=== PATIENT | female | born 1970 | race Caucasian/White ===

== ENCOUNTER 2020-10-26 04:49 | Emergency (ER) | payer BC, OTHER ==
[~2020-10-26] VITALS: Ht 149.9 cm; Wt 99.5 kg
--- NOTE | 2020-10-26 05:11 | PHYS DOC ---
Past Medical History Additional Past Medical Histor: Scoliosis Past Surgical History: No Surgical History Smoking Status: Current Every Day Smoker Alcohol Use: None Drug Use: None General Adult EDM: Chief Complaint: LOWER EXT PAIN HPI: HPI: 50-year-old female presents via EMS with report of bilateral leg pain. Reports cramping pain awoke her at approximately 0430 this morning. Reports at that time it was 10 out of 10. Reports upon arrival to the emergency department now down to 4 out of 10. Denies trauma. Patient reports she was unable to ambulate initially due to the cramping pain. Patient does report taking some ibuprofen prior to arrival. 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 Patient does report she is up on her feet all day. Patient does report earlier this week she had some nausea and vomiting and reports she is just now starting to feel better. Patient reports she has been trying to stay hydrated by drinking extra water. Denies any fever or chills. Denies loss of bowel or bladder. Patient does report chronic back issues with scoliosis but denies history of sciatica. Review of Systems: Review of Systems: Constitutional: Denies fever or chills Eyes: Denies redness or eye pain HENT: Denies nasal congestion or sore throat Respiratory: Denies cough or shortness of breath Cardiovascular: Denies chest pain or palpitations GI: Denies abdominal pain; reports history of nausea and vomiting which is now resolved : Denies dysuria or hematuria Musculoskeletal: Denies back pain; reports of bilateral leg pain Integument: Denies rash or skin lesions Neurologic: Denies headache, focal weakness or sensory changes Complete systems were reviewed and found to be within normal limits, except as documented in this note. Allergies: Allergies: Allergies Coded Allergies Type Severity Reaction Last Updated Verified No Known Drug Allergies 01/03/16 No Physical Exam: PE: Constitutional: Well developed, obese, anxious, non-toxic appearance HENT: Normocephalic, atraumatic Eyes: Conjunctiva normal, no discharge Neck: Normal range of motion, no tenderness, supple Lungs & Thorax: No respiratory distress, equal chest rise and fall Skin: Warm, dry, no erythema, no rash Back: Scoliosis, no midline or paraspinal tenderness, no CVA tenderness Extremities: Tenderness with palpation of bilateral lower legs, bilateral DP and PTs +2/4, ROM intact, no edema Neurologic: Alert and oriented X 3, normal motor function, normal sensory function, no focal deficits noted Psychologic: Affect anxious, judgment normal EKG: EKG: @0614 NSR at 100bpm, NO ST elevation, QRS 96ms, QT/QTc 368/478ms, LAFB Radiology/Procedures: Radiology/Procedures: PROCEDURE: CHEST AP ONLY Study: XR CHEST 1V Indication: Leukocytosis. Weakness. Comparison: 01/03/2016 Findings: Unchanged cardiomediastinal silhouette and etienne. No focal airspace opacity, layering effusion or pneumothorax. Redemonstrated and unchanged thoracic dextroscoliosis. Impression: No acute radiographic abnormality of the chest. No relevant change from the 01/03/2016 comparison. Electronically signed by: ELENI AUGUST MD (10/26/2020 6:37 AM) [facility] Course & Med Decision Making: Course & Med Decision Making Pertinent Lab and radiological studies reviewed. (See chart for details) Patient presents via EMS with report of bilateral leg pain. History of recent illness causing nausea and vomiting. Patient reports pain was cramping in nature. Concern for possible dehydration and/or hypokalemia. No history of trauma. Limbs neurovascularly intact. Labs obtained and posted to chart. IV fluid hydration provided. Patient did become nauseated and vomited. Symptomatic treatment provided. Hemoglobin concentrated. BUN/Creat elevated. Lactic acid elevated. SIRS positive. CXR without acute finding. UA without signs of infection. NO focal source of infection noted. COVID testing pending. Empiric antibiotic initiated. Sepsis bolusing completed (based on IBW). EKG stable. Patient only able to produce a small amount of urine. On 2nd attempt patient with urinary urgency. Possible source of infection being UTI. Unable to obtain UA given not able to provide enough urine to sample. Straight cath ordered but patient refusing. Additional 500ml bolus ordered and hanging. BCX ordered but again patient refused. Patient requesting to leave. Patient requiring admission for further evaluation and treatment. Discussed findings and plan with patient and son, who acknowledges understanding. Patient declines admission. Patient elects to leave against medical advice. Patient understanding and accepts risks of leaving AMA including worsening renal failure, permanent disability, and/or . COVID-19 CRITERIA: The patient was evaluated during the global COVID-19 pandemic, and that diagnosis was suspected/considered upon their initial presentation. Their evaluation, treatment and testing was consistent with current guidelines for patients who present with complaints or symptoms that may be related to COVID-19. Erika Disclaimer: Erika Disclaimer: This electronic medical record was generated, in whole or in part, using a voice recognition dictation system. Departure Departure Impression: Primary Impression: Acute renal failure Qualified Codes: N17.9 - Acute kidney failure, unspecified Additional Impressions: Bilateral leg cramps Dehydration Left against medical advice Suspected 2019 novel coronavirus infection Lactic acidosis Elevated LFTs Nausea & vomiting Qualified Codes: R11.2 - Nausea with vomiting, unspecified Disposition: 07 AMA/ELOPED/LWBS Condition: STABLE Referrals: NO PCP (PCP) HUY MULLINS MD Patient Instructions: Clear Liquid Diet, Nbqg-rw-Acir, Dehydration, Adult, [id number]-Qcqa, Discharge Against Medical Advice, Kidney Failure, Dzbj-mi-Fmmf, Lactic Acid, Lactate, Leg Cramps, Nausea and Vomiting, Dejz-oh-Qpos, Renal Diet, Pre-Dialysis Additional Instructions: PLEASE follow closely with a family doctor or clinic and a kidney specialist (registered dietetic technician). Your kidney function and liver enzymes need to be rechecked. Please return to ED for further evaluation for any worsening of condition. You have been offered admission today which you declined and have elected to leave against medical advice. You are therefore accepting of the risk of leaving against medical advice including renal failure, permanent disability, and/or . You have been tested for or diagnosed with COVID-19. It is an infection caused by a new type of coronavirus. COVID-19 will cause cold-like or mild flu symptoms in most. It can cause more severe symptoms like problems breathing in some. There is no treatment for COVID-19. The body will clear the infection over time. Self-care will help to ease discomfort. Steps to Take: Self-Care Rest as needed. Healthy habits may help you feel better. Steps include: Choose healthy foods including fruits and vegetables. Drink water throughout the day. Get plenty of sleep each night. If you smoke, try to quit. It may ease breathing. Avoid alcohol. Keep Others Healthy The virus can spread to others. Droplets are released every time you sneeze or cough. The droplets can get into the mouth, nose, or eyes of people near you and lead to infection. To lower the chances of spreading COVID-19 to others: Stay at home until your doctor has said it is safe to leave. If you tested positive this will mean staying isolated until both of the following are true: At least 7 days have passed since the start of illness. You are free of fever for at least 72 hours without the use of medicine. During this time: - Avoid public areas, events, or transportation. Do not return to work or school until your doctor has said it is safe to do so. - Call ahead if you need to go to a medical center. Let them know you may have COVID-19. It will help them guide you where to go. They may also ask you to wear a facemask when you come to the office. - If you call for emergency medical services, let them know you may have COVID- 19. While at home: - Try to avoid close contact with others. Stay about 6 feet away. - If possible, spend most of your time in a separate room from others. - Use a face mask if you will be in close contact with others such as sharing a room or vehicle. - Have someone wipe down common surfaces in the home. Use household underground utility locator every day on areas like doorknobs, counters, or sinks. - Cough or sneeze into a tissue. Throw the tissue away right after use. If a tissue is not available, cough or sneeze into your elbow. - Wash your hands often. Wash them after sneezing or coughing. Use soap and water and wash for at least 20 seconds. Alcohol based hand latrine cleaner can be used if soap and water is not available. - Do not prepare food for others. Avoid sharing personal items like forks, spoons, or toothbrushes. - Avoid close contact with pets while you are sick. There is no evidence of the virus passing to pets. This is a safety step until more is known about this virus. Isolation can be frustrating. Social interaction can help. Keep in touch with friends and family through phone and tech options. You can still interact with others in your home, just keep a safe distance of about 6 feet. Follow-up: Your doctors office will check in with you to see if there are any changes in your health. You may be asked to keep track of symptoms to share with them. They will also let you know when you are clear to be in public again. Problems to Look Out For: Contact your doctor if your recovery is not going as you expect. Get emergency care if you have problems such as: - Trouble breathing - Nonstop chest pain or pressure - Changes in awareness, confusion, or problems waking - Lips or face have bluish color - Worsening of symptoms If you think you have an emergency, call for emergency medical services right away. As taken from [facility] Cephalexin (CEPHALEXIN) 500 Mg Capsule 1 CAP PO TID for 7 Days, #21 CAP Prov: ELVIS SALDANA DO 10/26/20 Ondansetron (ONDANSETRON ODT) 4 Mg Tab.rapdis 1 TAB PO PRN Q6-8HRS PRN for NAUSEA, #16 TAB Prov: ELVIS SALDANA DO 10/26/20 Date and Time of Reassessment Date: Oct 26, 2020 Time: 07:42 Fluid Challenge Is the fluid challenge complet: No IBW Target Volume Used: Yes BMI > 30: Yes Vital Signs Vital Signs: Vital Signs Date Time Temp Pulse Resp B/P (MAP) Pulse Ox O2 Delivery O2 Flow Rate FiO2 10/26/20 06:56 106 34 151/99 (116) 99 Room Air 10/26/20 04:55 97.9 97.9 Temperature Source: Oral Respirations Respiratory Effort: Normal Respiratory Pattern: Normal Cardiovascular Pulse Rhythm: Regular Heart: Nml rate, reg. rhythm Lung Sounds Breath Sounds: Clear Capillary Refil Capillary Refill: Rt Hand < 3 seconds Peripheral Pulse Pulse Location: Radial Pulse Strength: Normal (2+) Pulse Assessment Method: Palpation Integumentary Skin: Warm, Dry, No Rashes Skin Moisture: Dry Skin Turgor: Normal Skin Color: warm, dry Fingernail Color: WNL COVID-19 Assessment: COVID-19 Patient Risks: Age 65 or older: No Sign of co-morbidity: No Exp to person + for COVID: No Exp to PUI: No Travel from affected area: No Lower respiratory symptoms: No Fever: No Other: Yes PPE Use: Full PPE with N95 mask or PAPR: Yes ELVIS SALDANA DO Oct 26, 2020 05:11
[2020-10-26 05:16] LABS: BASO # 0.1 x10^3/uL (0.0-0.2); BASO % 1 % (0-3); EOS % 0 % (0-3); HEMATOCRIT 53.5 % (36.0-47.0); HEMOGLOBIN 18.4 g/dL (12.0-15.5); LYMPH # 1.9 x10^3/uL (1.0-4.8); LYMPH % 12 % (24-48); MEAN CORPUSCULAR HEMOGLOBIN 31 pg (25-35); MEAN CORPUSCULAR HGB CONC 34 g/dL (31-37); MEAN CORPUSCULAR VOLUME 89 fL (79-100); MONO # 1.2 x10^3/uL (0.0-1.1); MONO % 8 % (0-9); NEUT # 12.8 x10^3/uL (1.8-7.7); NEUT % 80 % (31-73); PLATELET COUNT 521 x10^3/uL (140-400); RED BLOOD COUNT 5.99 x10^6/uL (3.50-5.40); RED CELL DISTRIBUTION WIDTH 13.6 % (11.5-14.5)
[2020-10-26] MEDS ORDERED: ORPHENADRINE CITRATE 60 MG/2 ML VIAL. IV ONE (05:30)
[2020-10-26] MEDS ORDERED: IV NORMAL SALINE 1000ML BAG 1,000 ML IV ONE (05:30)
[2020-10-26 05:38] LABS: CREATININE 4.6 mg/dL (0.6-1.0); GFR 10.1; POTASSIUM 3.7 mmol/L (3.5-5.1)
[2020-10-26 05:43] LABS: ALBUMIN 4.4 g/dL (3.4-5.0); ALBUMIN/GLOBULIN RATIO 0.8 (1.0-1.7); MAGNESIUM 2.2 mg/dL (1.8-2.4); TOTAL BILIRUBIN 0.7 mg/dL (0.2-1.0); TOTAL PROTEIN 9.7 g/dL (6.4-8.2)
[2020-10-26] MEDS ORDERED: IV NORMAL SALINE 500ML BAG 500 ML IV ONE ×2 (06:30→07:45)
--- NOTE | 2020-10-26 06:39 | RAD ---
Study: XR CHEST 1V Indication: Leukocytosis. Weakness. Comparison: 01/03/2016 Findings: Unchanged cardiomediastinal silhouette and etienne. No focal airspace opacity, layering effusion or pneu mothorax. Redemonstrated and unchanged thoracic dextroscoliosis. Impression: No acute radiographic abnormality of the chest. No relevant change from the 01/03/2016 comparison. Electronically signed by: ELENI AUGUST MD (10/26/2020 6:37 AM) [facility]
[2020-10-26] MEDS ORDERED: ONDA4TAB12 PO (07:04)
--- NOTE | 2020-10-26 07:14 | EKG ---
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
[2020-10-26 07:15] LABS: % BANDS 3 % (0-9); % EOS 1 % (0-5); % LYMPHS 8 % (24-48); % MONOS 9 % (0-10); % SEGS 79 % (35-66); PLT ESTIMATE INCREASED (ADEQUATE); TOXIC VACUOLATION SLIGHT
[2020-10-26] MEDS ORDERED: ONDANSETRON PF 4 MG/2 ML VIAL. IVP ONE ×2 (07:30→08:00)
[2020-10-26] MEDS ORDERED: FAMOTIDINE 20 MG/2 ML VIAL IVP ONE (07:30)
[2020-10-26] MEDS ORDERED: cefTRIAXone IV Push 1 GM VIAL. IVP ONE (07:45)
[2020-10-26 08:00] VITALS: BP 130/74
[2020-10-26] MEDS ORDERED: CEPH500C PO (08:04)
== END 2020-10-26 08:33 | disposition left against medical advice (07) ==
LOC: ER 04:49
DX: N17.9 Acute kidney failure, unspecified (principal); Z20.822 Contact with and (suspected) exposure to COVID-19; R25.2 Cramp and spasm; E86.0 Dehydration; R79.89 Other specified abnormal findings of blood chemistry; E87.2 Acidosis; R11.2 Nausea with vomiting, unspecified; F17.200 Nicotine dependence, unspecified, uncomplicated
CPT/HCPCS: 36415; 71045; 80053; 82550; 83605; 83735; 84484; 85007; 85025; 93005; 96361; 96374; 96375; 99285; C9803; J0696; J2360; J2405; J3490; J7030; J7040; U0003

== ENCOUNTER 2020-10-28 06:26 | Inpatient (IN) | payer BC ==
[~2020-10-28] VITALS: Ht 149.9 cm; Wt 105.0 kg
[~2020-10-28 06:26] MED LIST: CEPH500C PO; ONDA4TAB12 PO
[2020-10-28] MEDS ORDERED: IV NORMAL SALINE 1000ML BAG 1,000 ML IV SCH (07:15)
--- NOTE | 2020-10-28 07:17 | PHYS DOC ---
Past Medical History Past Medical History: Asthma, Other Additional Past Medical Histor: Scoliosis Past Surgical History: Appendectomy, , Other Additional Past Surgical Histo: NOSE Smoking Status: Never Smoker Alcohol Use: None Drug Use: None General Adult EDM: Chief Complaint: LOWER EXT PAIN HPI: HPI: 50-year-old female past medical history of asthma, presents to the ED with complaints of body aches, leg cramping, and low back pain with multiple episodes of nausea and vomiting. States she was seen for the symptoms 2 days ago in the ED but refused admission. Reports " I will not stay." States she did not fill her medications and has taken approximately 4 tablets of her antibiotic. EMR was reviewed and patient seen in ED 2 days ago, diagnosed with UTI and concern for PUI, pt signed out AMA. Review of Systems: Review of Systems: Constitutional: Denies fever or chills. [] Eyes: Denies change in visual acuity. [] HENT: Denies nasal congestion or sore throat. [] Respiratory: Denies cough or shortness of breath. [] Cardiovascular: Denies chest pain or edema. [] GI: Denies abdominal pain, bloody stools or diarrhea. [] : Denies dysuria. [] Musculoskeletal: Denies joint pain or swelling Integument: Denies rash. [] Neurologic: Denies headache, focal weakness or sensory changes. [] Endocrine: Denies polyuria or polydipsia. [] Lymphatic: Denies swollen glands. [] Psychiatric: Denies depression or anxiety. [] Heart Score: Risk Factors: Risk Factors: DM, Current or recent (<one month) smoker, HTN, HLP, family history of CAD, obesity. Risk Scores: Score 0 - 3: 2.5% MACE over next 6 weeks - Discharge Home Score 4 - 6: 20.3% MACE over next 6 weeks - Admit for Clinical Observation Score 7 - 10: 72.7% MACE over next 6 weeks - Early Invasive Strategies Allergies: Allergies: Allergies Coded Allergies Type Severity Reaction Last Updated Verified No Known Drug Allergies 01/03/16 No Physical Exam: PE: Constitutional: Unkept appearance, flu appearing. HENT: Normocephalic, atraumatic, dry mucous membranes Eyes: EOMI, conjunctiva normal, Neck: Normal range of motion, supple, Cardiovascular: S1/2 present, tachycardic Lungs & Thorax: Speaking in full sentences, bilateral equal chest rise, no tachypnea or increased work of breathing Abdomen: soft, no tenderness, very large pannus, no pain in umbilicus or with deep palpation, Skin: Warm, dry, no erythema, no rash. [] Back: No midline step-off, no CVA tenderness. [] Extremities: No tenderness, no cyanosis, Neurologic: Alert and oriented X 3, normal motor function, normal sensory function, no focal deficits noted. [] Psychologic: Affect normal, judgement normal, mood normal. [] Current Patient Data: Vital Signs: Vital Signs Date Time Temp Pulse Resp B/P (MAP) Pulse Ox O2 Delivery O2 Flow Rate FiO2 10/28/20 06:36 96.5 124 20 145/60 (88) 98 Room Air 96.5 EKG: EKG: [] Radiology/Procedures: Radiology/Procedures: IMAGING REPORT Signed PATIENT: KRYSTYNA WASSERMAN ACCOUNT: [id number] : 1970 LOCATION: ER AGE: 50 SEX: F EXAM STATUS: REG ER ORD. PHYSICIAN: MICHELLE SAMUEL DO REASON: flu like sxs pyelo? obstruction? PROCEDURE: CT ABDOMEN PELVIS WO CONTRAST EXAM: CT Abdomen and Pelvis without IV contrast INDICATION: Reason: flu like sxs pyelo? obstruction? / Spl. Instructions: / History: TECHNIQUE: Multi-detector row CT images were acquired from the lung bases through the abdomen and pelvis without the use of IV contrast. Sagittal and coronal images were acquired from the transaxial data. All CT scans performed at this facility utilize dose optimization techniques as appropriate to the exam, including the following: Automated exposure control and adjustment of the mA and/or KV according to patient size (this includes techniques or standardized protocols for targeted exams where dose is indication/reason for exam). ORAL CONTRAST: None COMPARISON: None FINDINGS: The absence of IV contrast limits evaluation of soft tissue pathology. LOWER CHEST: Unremarkable LIVER: Diffuse hypoattenuation compatible fatty infiltration. BILIARY SYSTEM: Gallbladder is distended but shows no calcified stones or CT evidence of wall thickening or pericholecystic soft tissue stranding. Bile ducts are not dilated. PANCREAS: Unremarkable SPLEEN: Unremarkable ADRENALS: Unremarkable KIDNEYS & URETERS: Unremarkable BLADDER: Unremarkable REPRODUCTIVE ORGANS: Nodular contour to the uterus suggesting presence of uterine fibroids. GASTROINTESTINAL: There is fluid distention of proximal small bowel loops upstream of a bowel containing periumbilical hernia. Hernia neck measures 1.9 cm tall and approximately 1.9 cm wide. The distal small bowel loops are collapsed as is the large bowel. No apparent wall thickening. Scattered colonic diverticuli are present. Appendix is not well seen. No findings of acute appendicitis are noted. MESENTERY/PERITONEUM/RETROPERITONEUM: Unremarkable VASCULAR: Unremarkable LYMPH NODES: No adenopathy OSSEOUS & SOFT TISSUES: Grade 2 anterolisthesis of L5 on S1 is present in the setting of chronic bilateral L5 pars defects. Levoscoliosis of the lumbar spine and dextroscoliosis of the lower thoracic spine are also evident. IMPRESSION: Small bowel obstruction from incarcerated periumbilical bowel-containing hernia. Electronically signed by: Angélica Wall MD (10/28/2020 10:43 AM) [facility] [place] and SIGNED BY: ANGÉLICA WALL MD DATE: 10/28/20 [id number] 0 Course & Med Decision Making: Course & Med Decision Making Pertinent Labs and Imaging studies reviewed. (See chart for details) Concern for sepsis with UTI, renal failure and small bowel obstruction. Patient with developmentally delayed son and sister. States she graduated high school and denies being developmentally delayed but I do suspect some cognitive delay. Grandmother with no cognitive delay who assisted in convincing patient to be admitted. Patient initially refused due to financial strain (is wanting to go to work right now) due to risk of losing her home (both her and her son work at [employer]). I offered to call her employer and explain her situation if she gave me consent. Pt later agreed with plan for admission. I did speak to Dr. Bahena regarding this and he requested n.p.o., IV fluids and NG tube placement. Will admit for further medical management with nephrology and orthopedic surgery consultation. I have spoken with the patient and/or caregivers. I have explained the patient's condition, diagnosis and treatment plan based on the information available to me at this time. I have answered the patient's and/or caregivers questions and answered any concerns. The patient and/or caregivers have as good an understanding of the patient's diagnosis, condition and treatment plan as can be expected at this point. The patient has been stabilized within the capability of the emergency department. The patient will be transported for further care and management or will be moved to an observation or inpatient service. I have communicated with the staff or medical practitioner taking over this patient's care. Dragon Disclaimer: Dragon Disclaimer: This electronic medical record was generated, in whole or in part, using a voice recognition dictation system. Departure Departure Impression: Primary Impression: Sepsis Additional Impressions: UTI (urinary tract infection) Renal failure SBO (small bowel obstruction) Disposition: ADMITTED INPT THIS HOSP Admitting Physician: ANGIE (Dr. Dennis) Condition: GUARDED Referrals: NO PCP (PCP) MICHELLE SAMUEL DO Oct 28, 2020 07:16
[2020-10-28 08:17] LABS: BARBITURATES NEG (NEG); BENZODIAZEPINES NEG (NEG); CANNABINOIDS NEG (NEG); COCAINE NEG (NEG); METHADONE NEG (NEG); OPIATES NEG (NEG); PHENCYCLIDINE NEG (NEG)
[2020-10-28 08:18] LABS: AMPHETAMINE/METHAMPHETAMINE NEG (NEG)
[2020-10-28] MEDS ORDERED: IV NORMAL SALINE 1000ML BAG 1,000 ML IV ONE ×3 (08:30→13:00)
[2020-10-28] MEDS ORDERED: cefTRIAXone IV Push 1 GM VIAL. IVP ONE (08:30)
[2020-10-28 08:45] LABS: BASO % 0 % (0-3); EOS % 0 % (0-3); HEMATOCRIT 54.4 % (36.0-47.0); HEMOGLOBIN 19.5 g/dL (12.0-15.5); LYMPH % 9 % (24-48); MEAN CORPUSCULAR HEMOGLOBIN 31 pg (25-35); MEAN CORPUSCULAR HGB CONC 36 g/dL (31-37); MEAN CORPUSCULAR VOLUME 88 fL (79-100); MONO % 9 % (0-9); NEUT # 8.8 x10^3/uL (1.8-7.7); NEUT % 81 % (31-73); PLATELET COUNT 480 x10^3/uL (140-400); RED BLOOD COUNT 6.22 x10^6/uL (3.50-5.40); RED CELL DISTRIBUTION WIDTH 13.5 % (11.5-14.5); WHITE BLOOD COUNT 10.8 x10^3/uL (4.0-11.0)
[2020-10-28 08:49] LABS: CALCIUM 10.2 mg/dL (8.5-10.1); CREATININE 5.6 mg/dL (0.6-1.0)
[2020-10-28 08:55] LABS: ALBUMIN 4.5 g/dL (3.4-5.0); DIRECT BILIRUBIN 0.3 mg/dL (0.0-0.2); MAGNESIUM 2.5 mg/dL (1.8-2.4); TOTAL BILIRUBIN 0.8 mg/dL (0.2-1.0); TOTAL PROTEIN 9.6 g/dL (6.4-8.2)
[2020-10-28 10:19] LABS: BILIRUBIN,URINE MODERATE (NEG); CLARITY,URINE CLOUDY; COLOR,URINE YELLOW; NITRITE,URINE NEGATIVE (NEG); PROTEIN,URINE 30 mg/dL (NEG-TRACE); UROBILINOGEN,URINE 0.2 mg/dL (0.2 mg/dL)
[2020-10-28] MEDS ORDERED: HYDROmorphone 2 MG/ML VIAL IVP ONE (10:30)
[2020-10-28] MEDS ORDERED: ONDANSETRON PF 4 MG/2 ML VIAL. IVP ONE (10:30)
[2020-10-28 10:36] LABS: HYALINE CASTS, URINE FEW /HPF
[2020-10-28 10:40] LABS: BACTERIA,URINE FEW /HPF (0-FEW); RBC,URINE 0 /HPF (0-2); TRICHOMONAS,URINE PRESENT
--- NOTE | 2020-10-28 10:46 | RAD ---
EXAM: CT Abdomen and Pelvis without IV contrast INDICATION: Reason: flu like sxs pyelo? obstruction? / Spl. Instructions: / History: TECHNIQUE: Multi-detector row CT images were acquired from the lung bases through the abdomen and pel vis without the use of IV contrast. Sagittal and coronal images were acquired from the transaxial nilson a. All CT scans performed at this facility utilize dose optimization techniques as appropriate to the exam, including the following: Automated exposure control and adjustment of the mA and/or KV accordi ng to patient size (this includes techniques or standardized protocols for targeted exams where dose is indication/reason for exam). ORAL CONTRAST: None COMPARISON: None FINDINGS: The absence of IV contrast limits evaluation of soft tissue pathology. LOWER CHEST: Unremarkable LIVER: Diffuse hypoattenuation compatible fatty infiltration. BILIARY SYSTEM: Gallbladder is distended but shows no calcified stones or CT evidence of wall thicken ing or pericholecystic soft tissue stranding. Bile ducts are not dilated. PANCREAS: Unremarkable SPLEEN: Unremarkable ADRENALS: Unremarkable KIDNEYS & URETERS: Unremarkable BLADDER: Unremarkable REPRODUCTIVE ORGANS: Nodular contour to the uterus suggesting presence of uterine fibroids. GASTROINTESTINAL: There is fluid distention of proximal small bowel loops upstream of a bowel contain ing periumbilical hernia. Hernia neck measures 1.9 cm tall and approximately 1.9 cm wide. The distal small bowel loops are collapsed as is the large bowel. No apparent wall thickening. Scattered colonic diverticuli are present. Appendix is not well seen. No findings of acute appendicitis are noted. MESENTERY/PERITONEUM/RETROPERITONEUM: Unremarkable VASCULAR: Unremarkable LYMPH NODES: No adenopathy OSSEOUS & SOFT TISSUES: Grade 2 anterolisthesis of L5 on S1 is present in the setting of chronic dylan ateral L5 pars defects. Levoscoliosis of the lumbar spine and dextroscoliosis of the lower thoracic s pine are also evident. IMPRESSION: Small bowel obstruction from incarcerated periumbilical bowel-containing hernia. Electronically signed by: Mario Alberto Wall MD (10/28/2020 10:43 AM) [facility] [place]
[2020-10-28] MEDS ORDERED: ACETAMINOPHEN 325 MG TABLET. PO PRN (13:15)
[2020-10-28] MEDS ORDERED: ONDANSETRON PF 4 MG/2 ML VIAL. IV PRN (13:15)
[2020-10-28] MEDS ORDERED: MORPHINE SULFATE 4 MG/ML VIAL. IV PRN (13:15)
[2020-10-28] MEDS ORDERED: PIP/TAZO PER PHARMACY MC PRN (13:30)
--- NOTE | 2020-10-28 13:30 | PDOC2 ---
CONSULT Date of Consult Date of Consult DATE: 10/28/20 TIME: 13:28 History of Present Illness Reason for Visit: 50 year old female who reported to the ER with a week long history of vomiting, and she reported because of worsening pain in her legs. Currently she has no abdominal pain and is hungry and asking for food. Past Medical History Past Medical History obesity, asthma Past Surgical History Past Surgical History Missy hollis section Social History Quit Current Problem List Problem List Problems Medical Problems: (1) Renal failure Status: Acute (2) SBO (small bowel obstruction) Status: Acute (3) Sepsis Status: Acute (4) UTI (urinary tract infection) Status: Acute Current Medications Current Medications Current Medications Sodium Chloride 1,000 ml @ 1,000 mls/hr Q1H IV Last administered on 10/28/20at 08:29; Start 10/28/20 at 07:15; Stop 10/28/20 at 08:14; Status DC Lorazepam (Ativan Inj) 1 mg 1X ONCE IVP Last administered on 10/28/20at 08:29; Start 10/28/20 at 07:15; Stop 10/28/20 at 07:25; Status DC Ceftriaxone Sodium (Rocephin) 1 gm 1X ONCE IVP Last administered on 10/28/20at 10:46; Start 10/28/20 at 08:30; Stop 10/28/20 at 08:31; Status DC Sodium Chloride 1,000 ml @ 1,000 mls/hr 1X ONCE IV Last administered on 10/28/20at 10:09; Start 10/28/20 at 08:30; Stop 10/28/20 at 09:29; Status DC Sodium Chloride 1,000 ml @ 1,000 mls/hr 1X ONCE IV ; Start 10/28/20 at 09:30; Stop 10/28/20 at 10:29; Status DC Hydromorphone HCl (Dilaudid) 0.5 mg 1X ONCE IVP Last administered on 10/28/20at 10:45; Start 10/28/20 at 10:30; Stop 10/28/20 at 10:31; Status DC Ondansetron HCl (Zofran) 4 mg 1X ONCE IVP Last administered on 10/28/20at 10:44; Start 10/28/20 at 10:30; Stop 10/28/20 at 10:31; Status DC Sodium Chloride 1,000 ml @ 1,000 mls/hr 1X ONCE IV ; Start 10/28/20 at 13:00; Stop 10/28/20 at 13:59 Hydromorphone HCl (Dilaudid) 0.5 mg PRN Q15MIN PRN IV/SQ PAIN GREATER THAN 3/10; Start 10/28/20 at 13:00; Stop 10/29/20 at 12:59 Ondansetron HCl (Zofran) 4 mg PRN Q8HRS PRN IV NAUSEA/VOMITING; Start 10/28/20 at 13:15; Stop 10/29/20 at 13:14 Morphine Sulfate (Morphine Sulfate) 4 mg PRN Q2HR PRN IV PAIN; Start 10/28/20 at 13:15; Stop 10/29/20 at 13:14 Sodium Chloride 1,000 ml @ 100 mls/hr Q10H IV ; Start 10/28/20 at 14:00; Stop 10/29/20 at 13:59 Acetaminophen (Tylenol) 650 mg PRN Q4HRS PRN PO FEVER > 100.3'F; Start 10/28/20 at 13:15; Stop 10/29/20 at 13:14 Active Scripts Active Cephalexin 500 Mg Capsule 1 Cap PO TID 7 Days Ondansetron Odt (Ondansetron) 4 Mg Tab.rapdis 1 Tab PO PRN Q6-8HRS PRN Allergies Allergies: Coded Allergies: No Known Drug Allergies (Unverified , 01/03/16) ROS General: No: Chills, Night Sweats, Fatigue, Malaise, Appetite, Other PSYCHOLOGICAL ROS: No: Anxiety, Behavioral Disorder, Concentration difficultie, Decreased libido, Depression, Disorientation, Hallucinations, Hostility, Irritablity, Memory difficulties, Mood Swings, Obsessive thoughts, Physical abuse, Sexual abuse, Sleep disturbances, Suicidal ideation, Other Eyes: No Blurry vision, No Decreased vision, No Double vision, No Dry eyes, No Excessive tearing, No Eye Pain, No Itchy Eyes, No Loss of vision, No Photophobia, No Scotomata, No Uses contacts, No Uses glasses, No Other HEENT: No: Heacaches, Visual Changes, Hearing change, Nasal congestion, Nasal discharge, Oral lesions, Sinus pain, Sore Throat, Epistaxis, Sneezing, Snoring, Tinnitus, Vertigo, Vocal changes, Other Gastrointestinal: Yes Vomiting Genitourinary: No Dysuria, No Frequency, No Incontinence, No Hematuria, No Retention, No Discharge, No Urgency, No Pain, No Flank Pain, No Other, No , No , No , No , No , No , No Musculoskeletal: No Gait Disturbance, No Joint Pain, No Joint Stiffness, No Joint Swelling, No Muscle Pain, No Muscular Weakness, No Pain In:, No Swelling In:, No Other Neurological: No Behavorial Changes, No Bowel/Bladder ControlChng, No Confusion, No Dizziness, No Gait Disturbance, No Headaches, No Impaired Coord/balance, No Memory Loss, No Numbness/Tingling, No Seizures, No Speech Problems, No Tremors, No Visual Changes, No Weakness, No Other Skin: No Dry Skin, No Eczema, No Hair Changes, No Lumps, No Mole Changes, No Mottling, No Nail Changes, No Pruritus, No Rash, No Skin Lesion Changes, No Other, No Acne Physical Exam General: Alert, Oriented X3, No acute distress HEENT: Atraumatic, PERRLA Lungs: Clear to auscultation Abdomen: Soft (obese, currently nontender, no palpable incarceration, small umbilical hernia) Extremities: No clubbing, No cyanosis Skin: No rashes Vitals VITALS Vital Signs Date Time Temp Pulse Resp B/P (MAP) Pulse Ox O2 Delivery O2 Flow Rate FiO2 10/28/20 06:36 96.5 124 20 145/60 (88) 98 Room Air 96.5 Labs Labs Laboratory Tests Test 10/28/20 07:50 10/28/20 08:05 10/28/20 10:00 Urine Opiates Screen Neg (NEG) Urine Methadone Screen Neg (NEG) Urine Barbiturates Neg (NEG) Urine Phencyclidine Screen Neg (NEG) Urine Amphetamine/Methamphetamine Neg (NEG) Urine Benzodiazepines Screen Neg (NEG) Urine Cocaine Screen Neg (NEG) Urine Cannabinoids Screen Neg (NEG) Urine Ethyl Alcohol Neg (NEG) White Blood Count 10.8 x10^3/uL (4.0-11.0) Red Blood Count 6.22 x10^6/uL (3.50-5.40) Hemoglobin 19.5 g/dL (12.0-15.5) Hematocrit 54.4 % (36.0-47.0) Mean Corpuscular Volume 88 fL (79-100) Mean Corpuscular Hemoglobin 31 pg (25-35) Mean Corpuscular Hemoglobin Concent 36 g/dL (31-37) Red Cell Distribution Width 13.5 % (11.5-14.5) Platelet Count 480 x10^3/uL (140-400) Neutrophils (%) (Auto) 81 % (31-73) Lymphocytes (%) (Auto) 9 % (24-48) Monocytes (%) (Auto) 9 % (0-9) Eosinophils (%) (Auto) 0 % (0-3) Basophils (%) (Auto) 0 % (0-3) Neutrophils # (Auto) 8.8 x10^3/uL (1.8-7.7) Lymphocytes # (Auto) 1.0 x10^3/uL (1.0-4.8) Monocytes # (Auto) 1.0 x10^3/uL (0.0-1.1) Eosinophils # (Auto) 0.0 x10^3/uL (0.0-0.7) Basophils # (Auto) 0.0 x10^3/uL (0.0-0.2) Sodium Level 128 mmol/L (136-145) Potassium Level 4.0 mmol/L (3.5-5.1) Chloride Level 81 mmol/L (98-107) Carbon Dioxide Level 29 mmol/L (21-32) Anion Gap 18 (6-14) Blood Urea Nitrogen 67 mg/dL (7-20) Creatinine 5.6 mg/dL (0.6-1.0) Estimated GFR (Cockcroft-Gault) 8.0 Glucose Level 181 mg/dL (70-99) Lactic Acid Level 2.8 mmol/L (0.4-2.0) Calcium Level 10.2 mg/dL (8.5-10.1) Magnesium Level 2.5 mg/dL (1.8-2.4) Total Bilirubin 0.8 mg/dL (0.2-1.0) Direct Bilirubin 0.3 mg/dL (0.0-0.2) Aspartate Amino Transf (AST/SGOT) 64 U/L (15-37) Alanine Aminotransferase (ALT/SGPT) 125 U/L (14-59) Alkaline Phosphatase 199 U/L (46-116) Creatine Kinase 437 U/L (26-192) Troponin I Quantitative < 0.017 ng/mL (0.000-0.055) Total Protein 9.6 g/dL (6.4-8.2) Albumin 4.5 g/dL (3.4-5.0) Lipase 156 U/L (73-393) Urine Collection Type Void Urine Color Yellow Urine Clarity Cloudy Urine pH 5.0 (<5.0-8.0) Urine Specific [place] 1.020 (1.000-1.030) Urine Protein 30 mg/dL (NEG-TRACE) Urine Glucose (UA) Negative mg/dL (NEG) Urine Ketones (Stick) Trace mg/dL (NEG) Urine Blood Moderate (NEG) Urine Nitrite Negative (NEG) Urine Bilirubin Moderate (NEG) Urine Urobilinogen Dipstick 0.2 mg/dL (0.2 mg/dL) Urine Leukocyte Esterase Small (NEG) Urine RBC 0 /HPF (0-2) Urine WBC 11-20 /HPF (0-4) Urine Squamous Epithelial Cells Mod /LPF Urine Bacteria Few /HPF (0-FEW) Urine Hyaline Casts Few /HPF Urine Trichomonas Present Laboratory Tests Test 10/28/20 07:50 10/28/20 08:05 10/28/20 10:00 Urine Opiates Screen Neg (NEG) Urine Methadone Screen Neg (NEG) Urine Barbiturates Neg (NEG) Urine Phencyclidine Screen Neg (NEG) Urine Amphetamine/Methamphetamine Neg (NEG) Urine Benzodiazepines Screen Neg (NEG) Urine Cocaine Screen Neg (NEG) Urine Cannabinoids Screen Neg (NEG) Urine Ethyl Alcohol Neg (NEG) White Blood Count 10.8 x10^3/uL (4.0-11.0) Red Blood Count 6.22 x10^6/uL (3.50-5.40) Hemoglobin 19.5 g/dL (12.0-15.5) Hematocrit 54.4 % (36.0-47.0) Mean Corpuscular Volume 88 fL (79-100) Mean Corpuscular Hemoglobin 31 pg (25-35) Mean Corpuscular Hemoglobin Concent 36 g/dL (31-37) Red Cell Distribution Width 13.5 % (11.5-14.5) Platelet Count 480 x10^3/uL (140-400) Neutrophils (%) (Auto) 81 % (31-73) Lymphocytes (%) (Auto) 9 % (24-48) Monocytes (%) (Auto) 9 % (0-9) Eosinophils (%) (Auto) 0 % (0-3) Basophils (%) (Auto) 0 % (0-3) Neutrophils # (Auto) 8.8 x10^3/uL (1.8-7.7) Lymphocytes # (Auto) 1.0 x10^3/uL (1.0-4.8) Monocytes # (Auto) 1.0 x10^3/uL (0.0-1.1) Eosinophils # (Auto) 0.0 x10^3/uL (0.0-0.7) Basophils # (Auto) 0.0 x10^3/uL (0.0-0.2) Sodium Level 128 mmol/L (136-145) Potassium Level 4.0 mmol/L (3.5-5.1) Chloride Level 81 mmol/L (98-107) Carbon Dioxide Level 29 mmol/L (21-32) Anion Gap 18 (6-14) Blood Urea Nitrogen 67 mg/dL (7-20) Creatinine 5.6 mg/dL (0.6-1.0) Estimated GFR (Cockcroft-Gault) 8.0 Glucose Level 181 mg/dL (70-99) Lactic Acid Level 2.8 mmol/L (0.4-2.0) Calcium Level 10.2 mg/dL (8.5-10.1) Magnesium Level 2.5 mg/dL (1.8-2.4) Total Bilirubin 0.8 mg/dL (0.2-1.0) Direct Bilirubin 0.3 mg/dL (0.0-0.2) Aspartate Amino Transf (AST/SGOT) 64 U/L (15-37) Alanine Aminotransferase (ALT/SGPT) 125 U/L (14-59) Alkaline Phosphatase 199 U/L (46-116) Creatine Kinase 437 U/L (26-192) Troponin I Quantitative < 0.017 ng/mL (0.000-0.055) Total Protein 9.6 g/dL (6.4-8.2) Albumin 4.5 g/dL (3.4-5.0) Lipase 156 U/L (73-393) Urine Collection Type Void Urine Color Yellow Urine Clarity Cloudy Urine pH 5.0 (<5.0-8.0) Urine Specific [place] 1.020 (1.000-1.030) Urine Protein 30 mg/dL (NEG-TRACE) Urine Glucose (UA) Negative mg/dL (NEG) Urine Ketones (Stick) Trace mg/dL (NEG) Urine Blood Moderate (NEG) Urine Nitrite Negative (NEG) Urine Bilirubin Moderate (NEG) Urine Urobilinogen Dipstick 0.2 mg/dL (0.2 mg/dL) Urine Leukocyte Esterase Small (NEG) Urine RBC 0 /HPF (0-2) Urine WBC 11-20 /HPF (0-4) Urine Squamous Epithelial Cells Mod /LPF Urine Bacteria Few /HPF (0-FEW) Urine Hyaline Casts Few /HPF Urine Trichomonas Present Images Images CT abdomen/pelvis IMPRESSION: Small bowel obstruction from incarcerated periumbilical bowel-containing hernia. Assessment/Plan Assessment/Plan 50 year old female, dehydration, vomiting, CT showing periumbilical hernia containing bowel with obstruction; suspect reduction of hernia since not palpable, no pain even with deep palpation. Recommend hydration, keep NPO, Covid test, reexamine in the AM. Poss repeat CT wo contrast in AM pending exam findings. If hernia is reduced would postpone surgery until medically im proved. MOHINDER LALA MD Oct 28, 2020 13:30
[2020-10-28] MEDS: HYDROmorphone 2 MG/ML VIAL IV/SQ PRN ×3 (13:42→16:06)
[2020-10-28] MEDS: PIPERACILLIN/TAZOBACTAM 2.25 GM in IV NORMAL SALINE 50ML 50 ML IV SCH ×2 (14:05→22:27)
--- NOTE | 2020-10-28 14:42 | HP ---
ADMIT DATE: 10/28/2020 CHIEF COMPLAINT: Lower extremity pain and abdominal pain. HISTORY OF PRESENT ILLNESS: The patient is a pleasant 50-year-old female who is basically homeless. She states she is living in an abandoned house. They use the fireplace to create heat. She has got lot of scratch virk and possible insect bites on her lower extremities. These have been getting worse over the past couple of days. Surprisingly, she does not really have much abdominal pain, but we did some imaging and it is showing she does have an incarcerated hernia, small-bowel obstruction from incarcerated periumbilical bowel containing hernia was read out on her CT. I discussed the case with ER physician. We are going to admit the patient, give her IV antibiotics and consult General Surgery. She also has renal failure with a creatinine of 5.6 and a BUN of 67. We are going to give her some fluids and consult Nephrology. PAST MEDICAL HISTORY: Noncompliance, asthma, scoliosis, appendectomy, , nose surgery. ALLERGIES: None. FAMILY HISTORY: Hypertension. SOCIAL HISTORY: She is homeless, does not drink, smoke or take drugs. 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 MEDICATIONS: Reviewed, please refer to the MRAD. REVIEW OF SYSTEMS: GENERAL: No history of weight change, weakness or fevers. SKIN: No bruising, hair changes or rashes. EYES: No blurred, double or loss of vision. NOSE AND THROAT: No history of nosebleeds, hoarseness or sore throat. HEART: No history of palpitations, chest pain or shortness of breath on exertion. LUNGS: Denies cough, hemoptysis, wheezing or shortness of breath. GASTROINTESTINAL: She complains of slight abdominal pain. GENITOURINARY: No history of frequency, urgency, hesitancy or nocturia. NEUROLOGIC: Denies history of numbness, tingling, tremor or weakness. PSYCHIATRIC: No history of panic, anxiety or depression. ENDOCRINE: No history of heat or cold intolerance, polyuria or polydipsia. EXTREMITIES: She complains of wounds and pain. PHYSICAL EXAMINATION: VITALS: Within normal limits and are stable. GENERAL: No apparent distress. Alert and oriented. HEENT: Normal cephalic atraumatic, external auditory canals are patent. Eyes: Extraocular muscles are intact, pupils are equally round and reactive to light and accommodation. MUSCULOSKELETAL: Well developed, well nourished, good range of motion. ENDOCRINE: No thyromegaly was palpated. LYMPHATICS: No cervical chain or axillary nodes were noted. HEMATOPOIETIC: No bruising. NECK: Supple, no JVD, no thyromegaly was noted. LUNGS: Clear to auscultation in all lung sarah without rhonchi or wheezing. HEART: RRR, S1, S2 present. Peripheral pulses intact, no obvious murmurs were noted. ABDOMEN: She has decreased bowel sounds with tenderness in the periumbilical region. EXTREMITIES: She has 1+ edema. NEUROLOGIC: Normal speech, normal tone. A and O x 3, moves all extremities, no obvious focal deficits. PSYCHIATRIC: Normal affect, normal mood. Stable. SKIN: She has multiple lesions and abrasions on her legs and arms, appear to be possible insect bites that have become infected. VASCULAR: Good capillary refill, neurovascular bundle appears to be intact. LABORATORY DATA: White count 10.8, hemoglobin 19.5, platelets 480. Electrolytes: Sodium 128, potassium 4.0, chloride 81, bicarbonate 29, BUN 67, creatinine 5.6, glucose 181. Drug screen negative. Urinalysis shows small amount of leukocyte esterase and 11-20 white cells. AST 64, ALT 125 and alkaline phosphatase 199. ASSESSMENT AND PLAN: Incarcerated hernia, urinary tract infection, severe renal failure, severe dehydration, erythrocytosis, hyponatremia, transaminitis. The patient has been admitted. We will start IV antibiotics, IV fluids. Trend labs. Consult Nephrology. Consult General Surgery. Check her for coronavirus, p.r.n. Tylenol, p.r.n. morphine, n.p.o. Prognosis guarded. BHARAT MIN DO DR: MEGAN/alexis JOB#: [id number] / [id number]
[2020-10-28] MEDS: IV NORMAL SALINE 1000ML BAG 1,000 ML IV SCH (15:05)
--- NOTE | 2020-10-28 15:14 | PDOC2 ---
CONSULT Date of Consult Date of Consult DATE: 10/28/20 TIME: 15:08 Referring Physician Referring Physician: RADHA Identification/Chief Complaint Chief Complaint ABD PAIN Source Source: Chart review, Patient History of Present Illness Reason for Visit: THIS IS A 50 YR OLD WITH ABD PAIN. HAS NOT BEEN EATING FOR ABOUT 1 WEEK DUE TO N/V. IN THE ER IMAGING C/W SBO AND PERIUMBILICAL HERNIA, MORPHOLOGY UNREMARKABLE. CR 5.6, WITH NA OF 128 AND HEMOCONCENTRATED WITH HGB OF 19. NO HEMODYNAMIC INSTABILITY OR NEPHROTOXINS NOTED. SURGERY EVALUATION ONGOING. NO OTHER HX NOTED. Past Surgical History Past Surgical History: Appendectomy, Family History Family History: Hypertension Social History No ALCOHOL: none Drugs: None Lives: Alone Current Problem List Problem List Problems Medical Problems: (1) Renal failure Status: Acute (2) SBO (small bowel obstruction) Status: Acute (3) Sepsis Status: Acute (4) UTI (urinary tract infection) Status: Acute Current Medications Current Medications Current Medications Sodium Chloride 1,000 ml @ 1,000 mls/hr Q1H IV Last administered on 10/28/20at 08:29; Start 10/28/20 at 07:15; Stop 10/28/20 at 08:14; Status DC Lorazepam (Ativan Inj) 1 mg 1X ONCE IVP Last administered on 10/28/20at 08:29; Start 10/28/20 at 07:15; Stop 10/28/20 at 07:25; Status DC Ceftriaxone Sodium (Rocephin) 1 gm 1X ONCE IVP Last administered on 10/28/20at 10:46; Start 10/28/20 at 08:30; Stop 10/28/20 at 08:31; Status DC Sodium Chloride 1,000 ml @ 1,000 mls/hr 1X ONCE IV Last administered on 10/28/20at 10:09; Start 10/28/20 at 08:30; Stop 10/28/20 at 09:29; Status DC Sodium Chloride 1,000 ml @ 1,000 mls/hr 1X ONCE IV Last administered on 10/28/20at 13:42; Start 10/28/20 at 09:30; Stop 10/28/20 at 10:29; Status DC Hydromorphone HCl (Dilaudid) 0.5 mg 1X ONCE IVP Last administered on 10/28/20at 10:45; Start 10/28/20 at 10:30; Stop 10/28/20 at 10:31; Status DC Ondansetron HCl (Zofran) 4 mg 1X ONCE IVP Last administered on 10/28/20at 10:44; Start 10/28/20 at 10:30; Stop 10/28/20 at 10:31; Status DC Sodium Chloride 1,000 ml @ 1,000 mls/hr 1X ONCE IV ; Start 10/28/20 at 13:00; Stop 10/28/20 at 15:05; Status DC Hydromorphone HCl (Dilaudid) 0.5 mg PRN Q15MIN PRN IV/SQ PAIN GREATER THAN 3/10 Last administered on 10/28/20at 15:06; Start 10/28/20 at 13:00; Stop 10/29/20 at 12:59 Ondansetron HCl (Zofran) 4 mg PRN Q8HRS PRN IV NAUSEA/VOMITING; Start 10/28/20 at 13:15; Stop 10/29/20 at 13:14 Morphine Sulfate (Morphine Sulfate) 4 mg PRN Q2HR PRN IV PAIN; Start 10/28/20 at 13:15; Stop 10/29/20 at 13:14 Sodium Chloride 1,000 ml @ 100 mls/hr Q10H IV Last administered on 10/28/20at 15:05; Start 10/28/20 at 14:00; Stop 10/29/20 at 13:59 Acetaminophen (Tylenol) 650 mg PRN Q4HRS PRN PO FEVER > 100.3'F; Start 10/28/20 at 13:15; Stop 10/29/20 at 13:14 Piperacillin Sod/ Tazobactam Sod (Zosyn Per Pharmacy) 1 each PRN DAILY PRN MC SEE COMMENTS; Start 10/28/20 at 13:30 Piperacillin Sod/ Tazobactam Sod 2.25 gm/Sodium Chloride 50 ml @ 100 mls/hr Q8HRS IV Last administered on 10/28/20at 14:05; Start 10/28/20 at 14:00 Active Scripts Active Cephalexin 500 Mg Capsule 1 Cap PO TID 7 Days Ondansetron Odt (Ondansetron) 4 Mg Tab.rapdis 1 Tab PO PRN Q6-8HRS PRN Allergies Allergies: Coded Allergies: No Known Drug Allergies (Unverified , 01/03/16) ROS General: YES: Malaise, Appetite PSYCHOLOGICAL ROS: YES: Depression Eyes: Yes Decreased vision HEENT: YES: Heacaches Respiratory: YES: Cough, Hemoptysis Cardiovascular: yes Chest Pain Gastrointestinal: Yes Nausea, Yes Constipation Genitourinary: YES Other (LESS URINE NOTED) Musculoskeletal: Yes Muscular Weakness Neurological: Yes Weakness Skin: Yes Dry Skin Physical Exam General: Alert, Oriented X3, Cooperative, mild distress HEENT: Atraumatic, PERRLA, EOMI Lungs: Clear to auscultation Heart: Regular rate Abdomen: Other (HYPOACTIVE) Extremities: No clubbing, No cyanosis Skin: No breakdown Neuro: Normal speech, Cranial nerves 3-12 NL Psych/Mental Status: Mental status NL, Mood NL MUSCULOSKELETAL: No joint tenderness, No deformity, No swelling Vitals VITALS Vital Signs Date Time Temp Pulse Resp B/P (MAP) Pulse Ox O2 Delivery O2 Flow Rate FiO2 10/28/20 15:06 18 95 Room Air 10/28/20 14:15 100 128/61 (83) 10/28/20 06:36 96.5 96.5 Labs Labs Laboratory Tests Test 10/28/20 07:50 10/28/20 08:05 10/28/20 10:00 10/28/20 14:09 Urine Opiates Screen Neg (NEG) Urine Methadone Screen Neg (NEG) Urine Barbiturates Neg (NEG) Urine Phencyclidine Screen Neg (NEG) Urine Amphetamine/Methamphetamine Neg (NEG) Urine Benzodiazepines Screen Neg (NEG) Urine Cocaine Screen Neg (NEG) Urine Cannabinoids Screen Neg (NEG) Urine Ethyl Alcohol Neg (NEG) White Blood Count 10.8 x10^3/uL (4.0-11.0) Red Blood Count 6.22 x10^6/uL (3.50-5.40) Hemoglobin 19.5 g/dL (12.0-15.5) Hematocrit 54.4 % (36.0-47.0) Mean Corpuscular Volume 88 fL (79-100) Mean Corpuscular Hemoglobin 31 pg (25-35) Mean Corpuscular Hemoglobin Concent 36 g/dL (31-37) Red Cell Distribution Width 13.5 % (11.5-14.5) Platelet Count 480 x10^3/uL (140-400) Neutrophils (%) (Auto) 81 % (31-73) Lymphocytes (%) (Auto) 9 % (24-48) Monocytes (%) (Auto) 9 % (0-9) Eosinophils (%) (Auto) 0 % (0-3) Basophils (%) (Auto) 0 % (0-3) Neutrophils # (Auto) 8.8 x10^3/uL (1.8-7.7) Lymphocytes # (Auto) 1.0 x10^3/uL (1.0-4.8) Monocytes # (Auto) 1.0 x10^3/uL (0.0-1.1) Eosinophils # (Auto) 0.0 x10^3/uL (0.0-0.7) Basophils # (Auto) 0.0 x10^3/uL (0.0-0.2) Sodium Level 128 mmol/L (136-145) Potassium Level 4.0 mmol/L (3.5-5.1) Chloride Level 81 mmol/L (98-107) Carbon Dioxide Level 29 mmol/L (21-32) Anion Gap 18 (6-14) Blood Urea Nitrogen 67 mg/dL (7-20) Creatinine 5.6 mg/dL (0.6-1.0) Estimated GFR (Cockcroft-Gault) 8.0 Glucose Level 181 mg/dL (70-99) Lactic Acid Level 2.8 mmol/L (0.4-2.0) 1.5 mmol/L (0.4-2.0) Calcium Level 10.2 mg/dL (8.5-10.1) Magnesium Level 2.5 mg/dL (1.8-2.4) Total Bilirubin 0.8 mg/dL (0.2-1.0) Direct Bilirubin 0.3 mg/dL (0.0-0.2) Aspartate Amino Transf (AST/SGOT) 64 U/L (15-37) Alanine Aminotransferase (ALT/SGPT) 125 U/L (14-59) Alkaline Phosphatase 199 U/L (46-116) Creatine Kinase 437 U/L (26-192) Troponin I Quantitative < 0.017 ng/mL (0.000-0.055) Total Protein 9.6 g/dL (6.4-8.2) Albumin 4.5 g/dL (3.4-5.0) Lipase 156 U/L (73-393) Urine Collection Type Void Urine Color Yellow Urine Clarity Cloudy Urine pH 5.0 (<5.0-8.0) Urine Specific [place] 1.020 (1.000-1.030) Urine Protein 30 mg/dL (NEG-TRACE) Urine Glucose (UA) Negative mg/dL (NEG) Urine Ketones (Stick) Trace mg/dL (NEG) Urine Blood Moderate (NEG) Urine Nitrite Negative (NEG) Urine Bilirubin Moderate (NEG) Urine Urobilinogen Dipstick 0.2 mg/dL (0.2 mg/dL) Urine Leukocyte Esterase Small (NEG) Urine RBC 0 /HPF (0-2) Urine WBC 11-20 /HPF (0-4) Urine Squamous Epithelial Cells Mod /LPF Urine Bacteria Few /HPF (0-FEW) Urine Hyaline Casts Few /HPF Urine Trichomonas Present Laboratory Tests Test 10/28/20 07:50 10/28/20 08:05 10/28/20 10:00 10/28/20 14:09 Urine Opiates Screen Neg (NEG) Urine Methadone Screen Neg (NEG) Urine Barbiturates Neg (NEG) Urine Phencyclidine Screen Neg (NEG) Urine Amphetamine/Methamphetamine Neg (NEG) Urine Benzodiazepines Screen Neg (NEG) Urine Cocaine Screen Neg (NEG) Urine Cannabinoids Screen Neg (NEG) Urine Ethyl Alcohol Neg (NEG) White Blood Count 10.8 x10^3/uL (4.0-11.0) Red Blood Count 6.22 x10^6/uL (3.50-5.40) Hemoglobin 19.5 g/dL (12.0-15.5) Hematocrit 54.4 % (36.0-47.0) Mean Corpuscular Volume 88 fL (79-100) Mean Corpuscular Hemoglobin 31 pg (25-35) Mean Corpuscular Hemoglobin Concent 36 g/dL (31-37) Red Cell Distribution Width 13.5 % (11.5-14.5) Platelet Count 480 x10^3/uL (140-400) Neutrophils (%) (Auto) 81 % (31-73) Lymphocytes (%) (Auto) 9 % (24-48) Monocytes (%) (Auto) 9 % (0-9) Eosinophils (%) (Auto) 0 % (0-3) Basophils (%) (Auto) 0 % (0-3) Neutrophils # (Auto) 8.8 x10^3/uL (1.8-7.7) Lymphocytes # (Auto) 1.0 x10^3/uL (1.0-4.8) Monocytes # (Auto) 1.0 x10^3/uL (0.0-1.1) Eosinophils # (Auto) 0.0 x10^3/uL (0.0-0.7) Basophils # (Auto) 0.0 x10^3/uL (0.0-0.2) Sodium Level 128 mmol/L (136-145) Potassium Level 4.0 mmol/L (3.5-5.1) Chloride Level 81 mmol/L (98-107) Carbon Dioxide Level 29 mmol/L (21-32) Anion Gap 18 (6-14) Blood Urea Nitrogen 67 mg/dL (7-20) Creatinine 5.6 mg/dL (0.6-1.0) Estimated GFR (Cockcroft-Gault) 8.0 Glucose Level 181 mg/dL (70-99) Lactic Acid Level 2.8 mmol/L (0.4-2.0) 1.5 mmol/L (0.4-2.0) Calcium Level 10.2 mg/dL (8.5-10.1) Magnesium Level 2.5 mg/dL (1.8-2.4) Total Bilirubin 0.8 mg/dL (0.2-1.0) Direct Bilirubin 0.3 mg/dL (0.0-0.2) Aspartate Amino Transf (AST/SGOT) 64 U/L (15-37) Alanine Aminotransferase (ALT/SGPT) 125 U/L (14-59) Alkaline Phosphatase 199 U/L (46-116) Creatine Kinase 437 U/L (26-192) Troponin I Quantitative < 0.017 ng/mL (0.000-0.055) Total Protein 9.6 g/dL (6.4-8.2) Albumin 4.5 g/dL (3.4-5.0) Lipase 156 U/L (73-393) Urine Collection Type Void Urine Color Yellow Urine Clarity Cloudy Urine pH 5.0 (<5.0-8.0) Urine Specific [place] 1.020 (1.000-1.030) Urine Protein 30 mg/dL (NEG-TRACE) Urine Glucose (UA) Negative mg/dL (NEG) Urine Ketones (Stick) Trace mg/dL (NEG) Urine Blood Moderate (NEG) Urine Nitrite Negative (NEG) Urine Bilirubin Moderate (NEG) Urine Urobilinogen Dipstick 0.2 mg/dL (0.2 mg/dL) Urine Leukocyte Esterase Small (NEG) Urine RBC 0 /HPF (0-2) Urine WBC 11-20 /HPF (0-4) Urine Squamous Epithelial Cells Mod /LPF Urine Bacteria Few /HPF (0-FEW) Urine Hyaline Casts Few /HPF Urine Trichomonas Present Assessment/Plan Assessment/Plan IMP RADHA-PRERENAL VS ATN-CR 3.0 EXTRACELLULAR VOLUME DEPLETION SBO AND PERIUMBILICAL HERNIA PLAN HYDRATION LABS IN AM CHECK UA D/W SURGERY NO INTERVENTION FOR NOW TILL RADHA IS BETTER WILL FOLLOW SHARON STEWART MD Oct 28, 2020 15:14
--- NOTE | 2020-10-28 15:26 | EKG ---
[facility] [address] [place] [address] Test Date: 2020-10-28 Test Time: 15:13:36 Pat Name: KRYSTYNA WASSERMAN Department: Room: Gender: F Teaching Young: : 1970 Requested By: MICHELLE SAMUEL Order Number: [id number] Reading MD: Measurements Intervals [place] Rate: 107 P: 55 IA: 122 QRS: -43 QRSD: 98 T: 24 QT: 366 QTc: 488 Interpretive Statements SINUS TACHYCARDIA LEFT ATRIAL ABNORMALITY ABNORMAL LEFT AXIS DEVIATION R-S TRANSITION ZONE IN V LEADS DISPLACED TO THE LEFT LEFT ANTERIOR FASCICULAR BLOCK QRS(T) CONTOUR ABNORMALITY CONSIDER ANTEROSEPTAL MYOCARDIAL DAMAGE ABNORMAL ECG RI6.01 No previous ECG available for comparison
[2020-10-28 16:20] VITALS: BP 106/67
[2020-10-28 19:50] VITALS: BP 89/51
[2020-10-28 23:10] VITALS: BP 134/84
[2020-10-29 03:50] VITALS: BP 109/81
[2020-10-29 04:03] LABS: BILIRUBIN,URINE NEGATIVE (NEG); CLARITY,URINE TURBID; COLOR,URINE YELLOW; NITRITE,URINE NEGATIVE (NEG); PH,URINE 5.5 (<5.0-8.0); PROTEIN,URINE NEGATIVE (NEG-TRACE); UROBILINOGEN,URINE 0.2 mg/dL (0.2 mg/dL)
[2020-10-29 04:32] LABS: BACTERIA,URINE 0 /HPF (0-FEW)
[2020-10-29 04:33] LABS: AMORPHOUS SEDIMENT,UR PRESENT /HPF
[2020-10-29] MEDS: IV NORMAL SALINE 1000ML BAG 1,000 ML IV SCH ×2 (06:24→10:00)
[2020-10-29] MEDS: PIPERACILLIN/TAZOBACTAM 2.25 GM in IV NORMAL SALINE 50ML 50 ML IV SCH ×4 (06:25→23:35)
[2020-10-29 06:48] LABS: CALCIUM 8.1 mg/dL (8.5-10.1); CREATININE 1.9 mg/dL (0.6-1.0)
[2020-10-29 06:51] LABS: POTASSIUM 2.7 mmol/L (3.5-5.1)
--- NOTE | 2020-10-29 06:54 | PDOC ---
[employer] PROGRESS NOTE Date of Service DOS: DATE: 10/29/20 TIME: 06:51 Chief Complaint Chief Complaint Incarcerated hernia, urinary tract infection, severe renal failure, severe dehydration, erythrocytosis, hyponatremia, transaminitis. The patient has been admitted. Continue IV prophylactic antibiotics, IV fluids. Trend labs. Consult Nephrology. Consult General Surgery. Check her for coronavirus, p.r.n. Tylenol, p.r.n. morphine, n.p.o. Prognosis guarded. History of Present Illness History of Present Illness The patient is a pleasant 50-year-old female who is basically homeless. She states she is living in an abandoned house. They use the fireplace to create heat. She has got lot of scratch virk and possible insect bites on her lower extremities. These have been getting worse over the past couple of days. Surprisingly, she does not really have much abdominal pain, but we did some imaging and it is showing she does have an incarcerated hernia, small-bowel obstruction from incarcerated periumbilical bowel containing hernia was read out on her CT. I discussed the case with ER physician. We are going to admit the patient, give her IV antibiotics and consult General Surgery. She also has renal failure with a creatinine of 5.6 and a BUN of 67. We are going to give her some fluids and consult Nephrology. 10/29/2020: Afebrile, tachycardic. She admits to some nausea but denies any vomiting or significant abdominal pain. Will continue to provide IV hydration and keep patient NPO. Repeat CT abdomen pelvis pending. Charts and labs reviewed, hold off on surgical intervention until kidney function improves. Creatinine 1.9 this morning, potassium 2.7. Will replace. Vitals/I&O Vitals/I&O: Vital Signs Date Time Temp Pulse Resp B/P (MAP) Pulse Ox O2 Delivery O2 Flow Rate FiO2 10/29/20 03:50 98.1 104 20 109/81 (90) 98 Room Air 98.1 I & O 10/28/20 10/28/20 10/29/20 15:00 23:00 07:00 Intake Total 50 ml 1000 ml Output Total 200 ml Balance -150 ml 1000 ml Physical Exam General: Alert, Oriented X3, Cooperative, mild distress Heart: Regular rate Lungs: Clear Abdomen: Other (Hypoactive) Extremities: No clubbing, No cyanosis Skin: No breakdown Labs Labs: Laboratory Tests Test 10/28/20 07:50 10/28/20 08:05 10/28/20 10:00 10/28/20 13:45 Urine Opiates Screen Neg (NEG) Urine Methadone Screen Neg (NEG) Urine Barbiturates Neg (NEG) Urine Phencyclidine Screen Neg (NEG) Urine Amphetamine/Methamphetamine Neg (NEG) Urine Benzodiazepines Screen Neg (NEG) Urine Cocaine Screen Neg (NEG) Urine Cannabinoids Screen Neg (NEG) Urine Ethyl Alcohol Neg (NEG) White Blood Count 10.8 x10^3/uL (4.0-11.0) Red Blood Count 6.22 x10^6/uL (3.50-5.40) Hemoglobin 19.5 g/dL (12.0-15.5) Hematocrit 54.4 % (36.0-47.0) Mean Corpuscular Volume 88 fL (79-100) Mean Corpuscular Hemoglobin 31 pg (25-35) Mean Corpuscular Hemoglobin Concent 36 g/dL (31-37) Red Cell Distribution Width 13.5 % (11.5-14.5) Platelet Count 480 x10^3/uL (140-400) Neutrophils (%) (Auto) 81 % (31-73) Lymphocytes (%) (Auto) 9 % (24-48) Monocytes (%) (Auto) 9 % (0-9) Eosinophils (%) (Auto) 0 % (0-3) Basophils (%) (Auto) 0 % (0-3) Neutrophils # (Auto) 8.8 x10^3/uL (1.8-7.7) Lymphocytes # (Auto) 1.0 x10^3/uL (1.0-4.8) Monocytes # (Auto) 1.0 x10^3/uL (0.0-1.1) Eosinophils # (Auto) 0.0 x10^3/uL (0.0-0.7) Basophils # (Auto) 0.0 x10^3/uL (0.0-0.2) Sodium Level 128 mmol/L (136-145) Potassium Level 4.0 mmol/L (3.5-5.1) Chloride Level 81 mmol/L (98-107) Carbon Dioxide Level 29 mmol/L (21-32) Anion Gap 18 (6-14) Blood Urea Nitrogen 67 mg/dL (7-20) Creatinine 5.6 mg/dL (0.6-1.0) Estimated GFR (Cockcroft-Gault) 8.0 Glucose Level 181 mg/dL (70-99) Lactic Acid Level 2.8 mmol/L (0.4-2.0) Calcium Level 10.2 mg/dL (8.5-10.1) Magnesium Level 2.5 mg/dL (1.8-2.4) Total Bilirubin 0.8 mg/dL (0.2-1.0) Direct Bilirubin 0.3 mg/dL (0.0-0.2) Aspartate Amino Transf (AST/SGOT) 64 U/L (15-37) Alanine Aminotransferase (ALT/SGPT) 125 U/L (14-59) Alkaline Phosphatase 199 U/L (46-116) Creatine Kinase 437 U/L (26-192) Troponin I Quantitative < 0.017 ng/mL (0.000-0.055) Total Protein 9.6 g/dL (6.4-8.2) Albumin 4.5 g/dL (3.4-5.0) Lipase 156 U/L (73-393) Urine Collection Type Void Urine Color Yellow Urine Clarity Cloudy Urine pH 5.0 (<5.0-8.0) Urine Specific [place] 1.020 (1.000-1.030) Urine Protein 30 mg/dL (NEG-TRACE) Urine Glucose (UA) Negative mg/dL (NEG) Urine Ketones (Stick) Trace mg/dL (NEG) Urine Blood Moderate (NEG) Urine Nitrite Negative (NEG) Urine Bilirubin Moderate (NEG) Urine Urobilinogen Dipstick 0.2 mg/dL (0.2 mg/dL) Urine Leukocyte Esterase Small (NEG) Urine RBC 0 /HPF (0-2) Urine WBC 11-20 /HPF (0-4) Urine Squamous Epithelial Cells Mod /LPF Urine Bacteria Few /HPF (0-FEW) Urine Hyaline Casts Few /HPF Urine Trichomonas Present SARS-CoV-2 Antigen (Rapid) Negative (NEGATIVE) Test 10/28/20 14:09 10/29/20 01:50 Lactic Acid Level 1.5 mmol/L (0.4-2.0) Urine Collection Type Unknown Urine Color Yellow Urine Clarity Turbid Urine pH 5.5 (<5.0-8.0) Urine Specific [place] 1.020 (1.000-1.030) Urine Protein Negative mg/dL (NEG-TRACE) Urine Glucose (UA) Negative mg/dL (NEG) Urine Ketones (Stick) 15 mg/dL (NEG) Urine Blood Trace (NEG) Urine Nitrite Negative (NEG) Urine Bilirubin Negative (NEG) Urine Urobilinogen Dipstick 0.2 mg/dL (0.2 mg/dL) Urine Leukocyte Esterase Small (NEG) Urine RBC 1-2 /HPF (0-2) Urine WBC 5-10 /HPF (0-4) Urine Squamous Epithelial Cells Mod /LPF Urine Amorphous Sediment Present /HPF Urine Bacteria 0 /HPF (0-FEW) Assessment and Plan Assessmemt and Plan Problems Medical Problems: (1) Renal failure Status: Acute (2) SBO (small bowel obstruction) Status: Acute (3) Sepsis Status: Acute (4) UTI (urinary tract infection) Status: Acute Comment Review of Relevant I have reviewed the following items jodi (where applicable) has been applied. Medications: Current Medications Medications (Trade) Dose Ordered Sig/Pham Route PRN Reason Start Time Stop Time Status Last Admin Dose Admin Sodium Chloride 1,000 ml @ 1,000 mls/hr Q1H IV 10/28/20 07:15 10/28/20 08:14 DC 10/28/20 08:29 Lorazepam (Ativan Inj) 1 mg 1X ONCE IVP 10/28/20 07:15 10/28/20 07:25 DC 10/28/20 08:29 Ceftriaxone Sodium (Rocephin) 1 gm 1X ONCE IVP 10/28/20 08:30 10/28/20 08:31 DC 10/28/20 10:46 Sodium Chloride 1,000 ml @ 1,000 mls/hr 1X ONCE IV 10/28/20 08:30 10/28/20 09:29 DC 10/28/20 10:09 Sodium Chloride 1,000 ml @ 1,000 mls/hr 1X ONCE IV 10/28/20 09:30 10/28/20 10:29 DC 10/28/20 13:42 Hydromorphone HCl (Dilaudid) 0.5 mg 1X ONCE IVP 10/28/20 10:30 10/28/20 10:31 DC 10/28/20 10:45 Ondansetron HCl (Zofran) 4 mg 1X ONCE IVP 10/28/20 10:30 10/28/20 10:31 DC 10/28/20 10:44 Hydromorphone HCl (Dilaudid) 0.5 mg PRN Q15MIN PRN IV/SQ PAIN GREATER THAN 11/0710/28/20 13:00 10/29/20 12:59 10/28/20 16:06 Ondansetron HCl (Zofran) 4 mg PRN Q8HRS PRN IV NAUSEA/VOMITING 10/28/20 13:15 10/29/20 13:14 10/28/20 22:27 Sodium Chloride 1,000 ml @ 100 mls/hr Q10H IV 10/28/20 14:00 10/29/20 13:59 10/29/20 06:24 Piperacillin Sod/ Tazobactam Sod 2.25 gm/Sodium Chloride 50 ml @ 100 mls/hr Q8HRS IV 10/28/20 14:00 10/29/20 06:25 Justifications for Admission Other Justification POP LÓPEZ MD Oct 29, 2020 06:54
[2020-10-29 07:00] VITALS: BP 117/72
[2020-10-29] MEDS: POTASSIUM CHLORIDE 10MEQ 100 ML IV SCH ×4 (08:32→17:01)
--- NOTE | 2020-10-29 09:21 | PDOC ---
PROGRESS NOTES Date of Service DATE: 10/29/20 TIME: 09:19 Subjective Subjective denies pain, reports having diarrhea Objective Objective Vital Signs Date Time Temp Pulse Resp B/P (MAP) Pulse Ox O2 Delivery O2 Flow Rate FiO2 10/29/20 07:00 97.3 102 18 117/72 (87) 96 Room Air 97.3 Intake and Output 10/29/20 07:00 Intake Total 1050 ml Output Total 200 ml Balance 850 ml Intake Oral 0 ml IV Total 1050 ml Output Emesis 200 ml # Voids 4 Physical Exam Abdomen: Soft, No tenderness (unable to palpate a hernia, nontender) General: Alert, Oriented X3 HEENT: Atraumatic Lungs: Clear to auscultation Neck: Supple Neuro: Normal speech Psych/Mental Status: Mental status NL Assessment Assessment Problems Medical Problems: (1) Renal failure Status: Acute (2) SBO (small bowel obstruction) Status: Acute (3) Sepsis Status: Acute (4) UTI (urinary tract infection) Status: Acute Plan Plan of Care Improved with hydration, plan to repeat CT since unable to appreciated a hernia on exam; if remains incarcerated then plan to OR today; if hernia reduced then continue with hydration and can hold on OR until optimized Comment Review of Relevant I have reviewed the following items jodi (where applicable) has been applied. Labs Laboratory Tests Test 10/28/20 07:50 10/28/20 08:05 10/28/20 10:00 10/28/20 13:45 Urine Opiates Screen Neg (NEG) Urine Methadone Screen Neg (NEG) Urine Barbiturates Neg (NEG) Urine Phencyclidine Screen Neg (NEG) Urine Amphetamine/Methamphetamine Neg (NEG) Urine Benzodiazepines Screen Neg (NEG) Urine Cocaine Screen Neg (NEG) Urine Cannabinoids Screen Neg (NEG) Urine Ethyl Alcohol Neg (NEG) White Blood Count 10.8 x10^3/uL (4.0-11.0) Red Blood Count 6.22 x10^6/uL (3.50-5.40) Hemoglobin 19.5 g/dL (12.0-15.5) Hematocrit 54.4 % (36.0-47.0) Mean Corpuscular Volume 88 fL (79-100) Mean Corpuscular Hemoglobin 31 pg (25-35) Mean Corpuscular Hemoglobin Concent 36 g/dL (31-37) Red Cell Distribution Width 13.5 % (11.5-14.5) Platelet Count 480 x10^3/uL (140-400) Neutrophils (%) (Auto) 81 % (31-73) Lymphocytes (%) (Auto) 9 % (24-48) Monocytes (%) (Auto) 9 % (0-9) Eosinophils (%) (Auto) 0 % (0-3) Basophils (%) (Auto) 0 % (0-3) Neutrophils # (Auto) 8.8 x10^3/uL (1.8-7.7) Lymphocytes # (Auto) 1.0 x10^3/uL (1.0-4.8) Monocytes # (Auto) 1.0 x10^3/uL (0.0-1.1) Eosinophils # (Auto) 0.0 x10^3/uL (0.0-0.7) Basophils # (Auto) 0.0 x10^3/uL (0.0-0.2) Sodium Level 128 mmol/L (136-145) Potassium Level 4.0 mmol/L (3.5-5.1) Chloride Level 81 mmol/L (98-107) Carbon Dioxide Level 29 mmol/L (21-32) Anion Gap 18 (6-14) Blood Urea Nitrogen 67 mg/dL (7-20) Creatinine 5.6 mg/dL (0.6-1.0) Estimated GFR (Cockcroft-Gault) 8.0 Glucose Level 181 mg/dL (70-99) Lactic Acid Level 2.8 mmol/L (0.4-2.0) Calcium Level 10.2 mg/dL (8.5-10.1) Magnesium Level 2.5 mg/dL (1.8-2.4) Total Bilirubin 0.8 mg/dL (0.2-1.0) Direct Bilirubin 0.3 mg/dL (0.0-0.2) Aspartate Amino Transf (AST/SGOT) 64 U/L (15-37) Alanine Aminotransferase (ALT/SGPT) 125 U/L (14-59) Alkaline Phosphatase 199 U/L (46-116) Creatine Kinase 437 U/L (26-192) Troponin I Quantitative < 0.017 ng/mL (0.000-0.055) Total Protein 9.6 g/dL (6.4-8.2) Albumin 4.5 g/dL (3.4-5.0) Lipase 156 U/L (73-393) Urine Collection Type Void Urine Color Yellow Urine Clarity Cloudy Urine pH 5.0 (<5.0-8.0) Urine Specific [place] 1.020 (1.000-1.030) Urine Protein 30 mg/dL (NEG-TRACE) Urine Glucose (UA) Negative mg/dL (NEG) Urine Ketones (Stick) Trace mg/dL (NEG) Urine Blood Moderate (NEG) Urine Nitrite Negative (NEG) Urine Bilirubin Moderate (NEG) Urine Urobilinogen Dipstick 0.2 mg/dL (0.2 mg/dL) Urine Leukocyte Esterase Small (NEG) Urine RBC 0 /HPF (0-2) Urine WBC 11-20 /HPF (0-4) Urine Squamous Epithelial Cells Mod /LPF Urine Bacteria Few /HPF (0-FEW) Urine Hyaline Casts Few /HPF Urine Trichomonas Present SARS-CoV-2 Antigen (Rapid) Negative (NEGATIVE) Test 10/28/20 14:09 10/29/20 01:50 10/29/20 06:20 Lactic Acid Level 1.5 mmol/L (0.4-2.0) Urine Collection Type Unknown Urine Color Yellow Urine Clarity Turbid Urine pH 5.5 (<5.0-8.0) Urine Specific [place] 1.020 (1.000-1.030) Urine Protein Negative mg/dL (NEG-TRACE) Urine Glucose (UA) Negative mg/dL (NEG) Urine Ketones (Stick) 15 mg/dL (NEG) Urine Blood Trace (NEG) Urine Nitrite Negative (NEG) Urine Bilirubin Negative (NEG) Urine Urobilinogen Dipstick 0.2 mg/dL (0.2 mg/dL) Urine Leukocyte Esterase Small (NEG) Urine RBC 1-2 /HPF (0-2) Urine WBC 5-10 /HPF (0-4) Urine Squamous Epithelial Cells Mod /LPF Urine Amorphous Sediment Present /HPF Urine Bacteria 0 /HPF (0-FEW) Sodium Level 134 mmol/L (136-145) Potassium Level 2.7 mmol/L (3.5-5.1) Chloride Level 96 mmol/L (98-107) Carbon Dioxide Level 27 mmol/L (21-32) Anion Gap 11 (6-14) Blood Urea Nitrogen 49 mg/dL (7-20) Creatinine 1.9 mg/dL (0.6-1.0) Estimated GFR (Cockcroft-Gault) 28.0 Glucose Level 120 mg/dL (70-99) Calcium Level 8.1 mg/dL (8.5-10.1) Laboratory Tests Test 10/28/20 10:00 10/28/20 13:45 10/28/20 14:09 10/29/20 01:50 Urine Collection Type Void Unknown Urine Color Yellow Yellow Urine Clarity Cloudy Turbid Urine pH 5.0 (<5.0-8.0) 5.5 (<5.0-8.0) Urine Specific [place] 1.020 (1.000-1.030) 1.020 (1.000-1.030) Urine Protein 30 mg/dL (NEG-TRACE) Negative mg/dL (NEG-TRACE) Urine Glucose (UA) Negative mg/dL (NEG) Negative mg/dL (NEG) Urine Ketones (Stick) Trace mg/dL (NEG) 15 mg/dL (NEG) Urine Blood Moderate (NEG) Trace (NEG) Urine Nitrite Negative (NEG) Negative (NEG) Urine Bilirubin Moderate (NEG) Negative (NEG) Urine Urobilinogen Dipstick 0.2 mg/dL (0.2 mg/dL) 0.2 mg/dL (0.2 mg/dL) Urine Leukocyte Esterase Small (NEG) Small (NEG) Urine RBC 0 /HPF (0-2) 1-2 /HPF (0-2) Urine WBC 11-20 /HPF (0-4) 5-10 /HPF (0-4) Urine Squamous Epithelial Cells Mod /LPF Mod /LPF Urine Bacteria Few /HPF (0-FEW) 0 /HPF (0-FEW) Urine Hyaline Casts Few /HPF Urine Trichomonas Present SARS-CoV-2 Antigen (Rapid) Negative (NEGATIVE) Lactic Acid Level 1.5 mmol/L (0.4-2.0) Urine Amorphous Sediment Present /HPF Test 10/29/20 06:20 Sodium Level 134 mmol/L (136-145) Potassium Level 2.7 mmol/L (3.5-5.1) Chloride Level 96 mmol/L (98-107) Carbon Dioxide Level 27 mmol/L (21-32) Anion Gap 11 (6-14) Blood Urea Nitrogen 49 mg/dL (7-20) Creatinine 1.9 mg/dL (0.6-1.0) Estimated GFR (Cockcroft-Gault) 28.0 Glucose Level 120 mg/dL (70-99) Calcium Level 8.1 mg/dL (8.5-10.1) Microbiology 10/28/20 Blood Culture - Preliminary, Resulted NO GROWTH AFTER 1 DAY Medications Current Medications Sodium Chloride 1,000 ml @ 1,000 mls/hr Q1H IV Last administered on 10/28/20at 08:29; Start 10/28/20 at 07:15; Stop 10/28/20 at 08:14; Status DC Lorazepam (Ativan Inj) 1 mg 1X ONCE IVP Last administered on 10/28/20at 08:29; Start 10/28/20 at 07:15; Stop 10/28/20 at 07:25; Status DC Ceftriaxone Sodium (Rocephin) 1 gm 1X ONCE IVP Last administered on 10/28/20at 10:46; Start 10/28/20 at 08:30; Stop 10/28/20 at 08:31; Status DC Sodium Chloride 1,000 ml @ 1,000 mls/hr 1X ONCE IV Last administered on 10/28/20at 10:09; Start 10/28/20 at 08:30; Stop 10/28/20 at 09:29; Status DC Sodium Chloride 1,000 ml @ 1,000 mls/hr 1X ONCE IV Last administered on 10/28/20at 13:42; Start 10/28/20 at 09:30; Stop 10/28/20 at 10:29; Status DC Hydromorphone HCl (Dilaudid) 0.5 mg 1X ONCE IVP Last administered on 10/28/20at 10:45; Start 10/28/20 at 10:30; Stop 10/28/20 at 10:31; Status DC Ondansetron HCl (Zofran) 4 mg 1X ONCE IVP Last administered on 10/28/20at 10:44; Start 10/28/20 at 10:30; Stop 10/28/20 at 10:31; Status DC Sodium Chloride 1,000 ml @ 1,000 mls/hr 1X ONCE IV ; Start 10/28/20 at 13:00; Stop 10/28/20 at 15:05; Status DC Hydromorphone HCl (Dilaudid) 0.5 mg PRN Q15MIN PRN IV/SQ PAIN GREATER THAN 3/10 Last administered on 10/28/20at 16:06; Start 10/28/20 at 13:00; Stop 10/29/20 at 12:59 Ondansetron HCl (Zofran) 4 mg PRN Q8HRS PRN IV NAUSEA/VOMITING Last admin istered on 10/28/20at 22:27; Start 10/28/20 at 13:15; Stop 10/29/20 at 13:14 Morphine Sulfate (Morphine Sulfate) 4 mg PRN Q2HR PRN IV PAIN; Start 10/28/20 at 13:15; Stop 10/29/20 at 13:14 Sodium Chloride 1,000 ml @ 100 mls/hr Q10H IV Last administered on 10/29/20at 06:24; Start 10/28/20 at 14:00; Stop 10/29/20 at 13:59 Acetaminophen (Tylenol) 650 mg PRN Q4HRS PRN PO FEVER > 100.3'F; Start 10/28/20 at 13:15; Stop 10/29/20 at 13:14 Piperacillin Sod/ Tazobactam Sod (Zosyn Per Pharmacy) 1 each PRN DAILY PRN MC SEE COMMENTS; Start 10/28/20 at 13:30 Piperacillin Sod/ Tazobactam Sod 2.25 gm/Sodium Chloride 50 ml @ 100 mls/hr Q8HRS IV Last administered on 10/29/20at 06:25; Start 10/28/20 at 14:00 Potassium Chloride/Water 100 ml @ 100 mls/hr Q1H IV Last administered on 10/29/20at 08:32; Start 10/29/20 at 08:00; Stop 10/29/20 at 11:59 Active Scripts Active Cephalexin 500 Mg Capsule 1 Cap PO TID 7 Days Ondansetron Odt (Ondansetron) 4 Mg Tab.rapdis 1 Tab PO PRN Q6-8HRS PRN Vitals/I & O Vital Sign - Last 24 Hours 10/28/20 10/28/20 10/28/20 10/28/20 09:30 10:00 10:45 11:15 Pulse 100 104 90 88 B/P (MAP) 117/77 (90) 130/67 (88) 125/85 (98) 111/79 (90) Pulse Ox 95 96 99 98 O2 Delivery Room Air Room Air Room Air Room Air 10/28/20 10/28/20 10/28/20 10/28/20 12:15 14:15 15:06 16:06 Pulse 106 100 Resp 18 18 B/P (MAP) 128/61 (83) Pulse Ox 95 95 O2 Delivery Room Air Room Air Room Air Room Air 10/28/20 10/28/20 10/28/20 10/28/20 16:20 17:00 19:50 20:00 Temp 97.7 98.5 97.7 98.5 Pulse 104 106 Resp 18 20 B/P (MAP) 106/67 (80) 89/51 (64) Pulse Ox 98 97 O2 Delivery Room Air Room Air Room Air Room Air 10/28/20 10/29/20 10/29/20 23:10 03:50 07:00 Temp 97.7 98.1 97.3 97.7 98.1 97.3 Pulse 112 104 102 Resp 20 20 18 B/P (MAP) 134/84 (101) 109/81 (90) 117/72 (87) Pulse Ox 98 98 96 O2 Delivery Room Air Room Air Room Air Intake and Output 10/28/20 10/28/20 10/29/20 15:00 23:00 07:00 Intake Total 50 ml 1000 ml Output Total 200 ml Balance -150 ml 1000 ml Justifications for Admission Other Justification MOHINDER LALA MD Oct 29, 2020 09:21
--- NOTE | 2020-10-29 10:10 | RAD ---
EXAM: CT Abdomen and Pelvis without IV contrast INDICATION: Reason: hernia, ?still incarcerated / Spl. Instructions: / History: TECHNIQUE: Multi-detector row CT images were acquired from the lung bases through the abdomen and pel vis without the use of IV contrast. Sagittal and coronal images were acquired from the transaxial nilson a. All CT scans performed at this facility utilize dose optimization techniques as appropriate to the exam, including the following: Automated exposure control and adjustment of the mA and/or KV accordi ng to patient size (this includes techniques or standardized protocols for targeted exams where dose is indication/reason for exam). ORAL CONTRAST: None COMPARISON: CT abdomen pelvis without IV contrast 10/28/20 FINDINGS: The absence of IV contrast limits evaluation of soft tissue pathology. LOWER CHEST: Unremarkable LIVER: Fatty BILIARY SYSTEM: Gallbladder is unremarkable. Bile ducts are not dilated. PANCREAS: Unremarkable SPLEEN: Unremarkable ADRENALS: Unremarkable KIDNEYS & URETERS: Unremarkable BLADDER: Unremarkable REPRODUCTIVE ORGANS: Myomatous uterus. GASTROINTESTINAL: A small bowel containing periumbilical hernia persists with dilation and fluid dist ension of upstream bowel loops and collapse of downstream bowel loops, similar to prior. Large bowel shows scattered diverticuli with no evidence of acute diverticulitis. The appendix is still not well seen. There are no findings of acute appendicitis. MESENTERY/PERITONEUM/RETROPERITONEUM: Unremarkable VASCULAR: Unremarkable LYMPH NODES: No adenopathy OSSEOUS & SOFT TISSUES: No actute osseous abnormalities or significant interval change. IMPRESSION: Yes, there are persistent findings of a small bowel obstruction related to a bowel-containing periumb ilical hernia which may therefore be incarcerated. Correlate with the clinical exam. There are no fin dings of bowel perforation or abscess formation. Electronically signed by: Mario Alberto Wall MD (10/29/2020 10:08 AM) [id number]
[2020-10-29] MEDS ORDERED: IV RINGERS,LACTATED 1000ML 1,000 ML IV SCH (10:45)
[2020-10-29] MEDS ORDERED: PROCHLORPERAZINE 10 MG/2 ML VIAL. IVP PRN (10:45)
[2020-10-29] MEDS ORDERED: fentaNYL PF VIAL 100 MCG/2 ML VIAL IVP PRN ×2 (10:45)
[2020-10-29 10:56] VITALS: BP 125/67
--- NOTE | 2020-10-29 11:38 | PDOC ---
DATE OF SERVICE DATE: 10/29/20 TIME: 11:30 SUBJECTIVE ROS Propped up in bed, c/o some nausea but denies any vomiting or significant abdominal pain. OBJECTIVE Vital Signs Vital Signs Date Time Temp Pulse Resp B/P (MAP) Pulse Ox O2 Delivery O2 Flow Rate FiO2 10/29/20 10:56 97.6 110 20 125/67 (86) 99 Room Air 97.6 I & 0 Intake and Output 10/29/20 07:00 Intake Total 1050 ml Output Total 200 ml Balance 850 ml Intake Oral 0 ml IV Total 1050 ml Output Emesis 200 ml # Voids 4 PHYSICAL EXAM Physical Exam General: Alert, Oriented X3,NAD HEENT: Atraumatic, PERRLA, OM moist Lungs: Clear to auscultation, Non labored CV : Regular rate Abdomen: Soft Extremities: No clubbing, No cyanosis, No edema Skin: No breakdown or rash Neuro: Normal speech, Cranial nerves 3-12 NL Psych/Mental Status: Mental status NL, Mood NL MUSCULOSKELETAL: No joint tenderness, No deformity, No swelling No shoemaker DIAGNOSIS/ASSESSMENT Assessment & Plan RADHA- Pre-renal , Improving with IV hydration from 5.6 to 1.9 , supportive care, Maintain Hydration , Strict I/O (per Nursing Good UOP, not recorded) HypoNatremia POA- 2/2 Dehydration , Improving HypoKalemia - Replace IV Severe Dehydration POA - Improving Incarcerated hernia-reported on CT- GS following COMMENT/RELEVANT DATA Meds Current Medications Medications (Trade) Dose Ordered Sig/Pham Start Time Stop Time Status Last Admin Dose Admin Acetaminophen (Tylenol) 650 mg PRN Q4HRS PRN 10/28/20 13:15 10/29/20 13:14 Ceftriaxone Sodium (Rocephin) 1 gm 1X ONCE 10/28/20 08:30 10/28/20 08:31 DC 10/28/20 10:46 1 GM Fentanyl Citrate (Fentanyl 2ml Vial) 50 mcg PRN Q5MIN PRN 10/29/20 10:45 10/30/20 10:44 Hydromorphone HCl (Dilaudid) 0.5 mg PRN Q10MIN PRN 10/29/20 10:45 10/30/20 10:44 Lorazepam (Ativan Inj) 1 mg 1X ONCE 10/28/20 07:15 10/28/20 07:25 DC 10/28/20 08:29 1 MG Morphine Sulfate (Morphine Sulfate) 1 mg PRN Q10MIN PRN 10/29/20 10:45 10/30/20 10:44 Ondansetron HCl (Zofran) 4 mg PRN Q8HRS PRN 10/28/20 13:15 10/29/20 13:14 10/28/20 22:27 4 MG Piperacillin Sod/ Tazobactam Sod (Zosyn Per Pharmacy) 1 each PRN DAILY PRN 10/28/20 13:30 Piperacillin Sod/ Tazobactam Sod 2.25 gm/Sodium Chloride 50 ml @ 100 mls/hr Q6HRS 10/29/20 12:00 Potassium Chloride/Water 100 ml @ 100 mls/hr Q1H 10/29/20 08:00 10/29/20 11:59 10/29/20 11:04 100 MLS/HR Prochlorperazine Edisylate (Compazine) 5 mg PACU PRN PRN 10/29/20 10:45 10/30/20 10:44 Ringer's Solution 1,000 ml @ 30 mls/hr Q24H 10/29/20 10:45 10/29/20 22:44 Sodium Chloride 1,000 ml @ 100 mls/hr Q10H 10/28/20 14:00 10/29/20 13:59 10/29/20 06:24 100 MLS/HR Lab Laboratory Tests Test 10/28/20 13:45 10/28/20 14:09 10/29/20 01:50 10/29/20 06:20 SARS-CoV-2 Antigen (Rapid) Negative (NEGATIVE) Lactic Acid Level 1.5 mmol/L (0.4-2.0) Urine Collection Type Unknown Urine Color Yellow Urine Clarity Turbid Urine pH 5.5 (<5.0-8.0) Urine Specific [place] 1.020 (1.000-1.030) Urine Protein Negative mg/dL (NEG-TRACE) Urine Glucose (UA) Negative mg/dL (NEG) Urine Ketones (Stick) 15 mg/dL (NEG) Urine Blood Trace (NEG) Urine Nitrite Negative (NEG) Urine Bilirubin Negative (NEG) Urine Urobilinogen Dipstick 0.2 mg/dL (0.2 mg/dL) Urine Leukocyte Esterase Small (NEG) Urine RBC 1-2 /HPF (0-2) Urine WBC 5-10 /HPF (0-4) Urine Squamous Epithelial Cells Mod /LPF Urine Amorphous Sediment Present /HPF Urine Bacteria 0 /HPF (0-FEW) Sodium Level 134 mmol/L (136-145) Potassium Level 2.7 mmol/L (3.5-5.1) Chloride Level 96 mmol/L (98-107) Carbon Dioxide Level 27 mmol/L (21-32) Anion Gap 11 (6-14) Blood Urea Nitrogen 49 mg/dL (7-20) Creatinine 1.9 mg/dL (0.6-1.0) Estimated GFR (Cockcroft-Gault) 28.0 Glucose Level 120 mg/dL (70-99) Calcium Level 8.1 mg/dL (8.5-10.1) Results All relevant outside records, renal labs, imaging studies, telemetry/EKG's were reviewed. Justicifation of Admission Dx: Justifications for Admission: Justification of Admission Dx: Yes Acute Renal Failure: 3-Fold Rise in Serum Crea HUY MULLINS MD Oct 29, 2020 11:37
[2020-10-29] MEDS ORDERED: BUPIVACAINE-EPI 0.5% 30 ML VIAL KIT. ONE (14:09)
--- NOTE | 2020-10-29 14:55 | NUR ---
SS following for discharge planning. SS reviewed pt chart and discussed with pt RN. Pt is from home with family and is currently on room air. Pt had repeat CT of abdomen today. Pt on IV Zosyn. SS will continue to follow for discharge planning.
[2020-10-29] MEDS ORDERED: fentaNYL PF VIAL 100 MCG/2 ML VIAL ONE ×2 (15:38)
[2020-10-29] MEDS ORDERED: NEOSTIGMINE 10 MG/10 ML VIAL. ONE (15:38)
[2020-10-29] MEDS ORDERED: ROCURONIUM 100 MG/10 ML VIAL. ONE (15:46)
[2020-10-29] MEDS ORDERED: GLYCOPYRROLATE 1 MG/5 ML VIAL. ONE (15:46)
[2020-10-29] MEDS ORDERED: LIDOCAINE 2% PF 5 ML VIAL. ONE (15:49)
[2020-10-29] MEDS ORDERED: ONDANSETRON PF 4 MG/2 ML VIAL. ONE (15:49)
[2020-10-29] MEDS ORDERED: DEXAMETHASONE SOD PHOS 4 MG/ML VIAL ONE (15:49)
[2020-10-29] MEDS ORDERED: PROPOFOL 10 MG/ML (20ML) VIAL. IV ONE (15:49)
[2020-10-29] MEDS ORDERED: SEVOFLURANE 61 TO 120 MINUTES. IH ONE ×2 (15:49→16:08)
[2020-10-29] MEDS ORDERED: HYDROmorphone 2 MG/ML VIAL ONE ×2 (15:56→17:00)
--- NOTE | 2020-10-29 16:03 | PDOC4 ---
Operative Note Operative Note Operative Note: Preoperative Diagnosis: Incarcerated umbilical hernia Postoperative Diagnosis: Same Procedure: Exploratory laparoscopy with reduction of incarcerated hernia, umbilical hernia repair with mesh Surgeon: Josef Field Gauger: NICOLE Shah Anesthesia: General EBL: 10 mL Specimen: None Drains: None Complications: None Indication: The patient is a 50-year-old female who reported with nausea and vomiting. Her evaluation included a CAT scan which identified incarcerated umbilical hernia containing obstructed bowel. We plan to proceed for operative repair. The risks of surgery were discussed which include bleeding, infection, hernia recurrence, pain, anesthetic risk, visceral injury, potential need for additional surgery procedure. She understands and would like to proceed. Description: The patient was taken the operating room and placed supine in the operating table. General anesthesia was performed. The abdomen was prepped with ChloraPrep and draped with sterile towels, sheets, and an Ioban. A left upper quadrant incision was made in the skin through which a visualized 5 mm trocar was inserted. Pneumoperitoneum was created and the laparoscope was introduced. Inspection of the abdomen showed a loop of bowel extending to the umbilical hernia defect. Another 5 mm port was placed in the left lateral abdomen. We were able to easily reduce the incarcerated bowel. Inspection showed some mild inflammatory change but the bowel was entirely viable. The pneumoperitoneum was relieved. An infraumbilical incision was made in the skin with the scalpel. Cautery dissection was carried down to the fascia. The umbilical tissue was elevated off the fascia exposing the hernia defect. A preperitoneal plane was developed circumferentially around the hernia defect. A small Ventralex ST mesh was then placed in this preperitoneal plane. The mesh was sutured into position with 0 Prolene placed in a horizontal mattress fashion. The fascial edges were closed over the mesh with 0 Prolene. The umbilical tissue was secured back to the fascia with 0 Vicryl. The subcutaneous tissue was closed with 3-0 Vicryl. The skin was approximated with 4-0 Monocryl. Steri-Strips and a sterile dressing were applied. The patient tolerated the procedure well sent to the recovery room in stable condition. At the end of the case all counts were correct. MOHINDER LALA MD Oct 29, 2020 16:03
[2020-10-29] MEDS ORDERED: MORPHINE SULFATE 2 MG/ML VIAL. ONE (16:36)
[2020-10-29] MEDS: MORPHINE SULFATE 2 MG/ML VIAL. IVP PRN ×2 (16:40→16:54)
[2020-10-29] MEDS: HYDROmorphone 2 MG/ML VIAL IVP PRN ×2 (17:02→17:13)
[2020-10-29 17:35] VITALS: BP 141/79
[2020-10-29 19:40] VITALS: BP 138/70
[2020-10-29] MEDS: oxyCODONE/APAP 5/325 1 TAB TABLET PO PRN (20:13)
[2020-10-29 23:15] VITALS: BP 125/72
[2020-10-30] MEDS: oxyCODONE/APAP 5/325 1 TAB TABLET PO PRN ×4 (02:23→20:54)
[2020-10-30 03:50] VITALS: BP 127/70
[2020-10-30] MEDS: PIPERACILLIN/TAZOBACTAM 2.25 GM in IV NORMAL SALINE 50ML 50 ML IV SCH (05:36)
[2020-10-30 07:00] VITALS: BP 136/79
--- NOTE | 2020-10-30 07:41 | PDOC ---
[employer] PROGRESS NOTE Date of Service DOS: DATE: 10/30/20 TIME: 07:38 Chief Complaint Chief Complaint Incarcerated hernia, urinary tract infection, severe renal failure, severe dehydration, erythrocytosis, hyponatremia, transaminitis. The patient has been admitted. Continue IV prophylactic antibiotics, IV fluids. Trend labs. Consult Nephrology. Consult General Surgery. Check her for coronavirus, p.r.n. Tylenol, p.r.n. morphine, n.p.o. Prognosis guarded. History of Present Illness History of Present Illness The patient is a pleasant 50-year-old female who is basically homeless. She states she is living in an abandoned house. They use the fireplace to create heat. She has got lot of scratch virk and possible insect bites on her lower extremities. These have been getting worse over the past couple of days. Surprisingly, she does not really have much abdominal pain, but we did some imaging and it is showing she does have an incarcerated hernia, small-bowel obstruction from incarcerated periumbilical bowel containing hernia was read out on her CT. I discussed the case with ER physician. We are going to admit the patient, give her IV antibiotics and consult General Surgery. She also has renal failure with a creatinine of 5.6 and a BUN of 67. We are going to give her some fluids and consult Nephrology. 10/29/2020: Afebrile, tachycardic. She admits to some nausea but denies any vomiting or significant abdominal pain. Will continue to provide IV hydration and keep patient NPO. Repeat CT abdomen pelvis pending. Charts and labs reviewed, hold off on surgical intervention until kidney function improves. Creatinine 1.9 this morning, potassium 2.7. Will replace. 10/30/2020 POD #1, s/p exporter laparoscopy with reduction of incarcerated hernia. No acute events overnight. Tolerating clear liquid diet. Abdominal pain tolerable with medication. Morning labs pending. Encouraged participation with PT/OT. General surgery reportedly wanting patient to stay 1 more day for further observation. Vitals/I&O Vitals/I&O: Vital Signs Date Time Temp Pulse Resp B/P (MAP) Pulse Ox O2 Delivery O2 Flow Rate FiO2 10/30/20 03:50 97.8 83 18 127/70 (89) 95 Room Air 97.8 10/29/20 16:24 8 I & O 10/29/20 10/29/20 10/30/20 15:00 23:00 07:00 Intake Total 650 ml 1860 ml 1900 ml Output Total 260 ml 300 ml Balance 650 ml 1600 ml 1600 ml Physical Exam General: Alert, Oriented X3 Heart: Regular rate Lungs: Clear Abdomen: Soft, No tenderness (unable to palpate a hernia, nontender) Extremities: No clubbing, No cyanosis Skin: No breakdown Assessment and Plan Assessmemt and Plan Problems Medical Problems: (1) Renal failure Status: Acute (2) SBO (small bowel obstruction) Status: Acute (3) Sepsis Status: Acute (4) UTI (urinary tract infection) Status: Acute Comment Review of Relevant I have reviewed the following items jodi (where applicable) has been applied. Medications: Current Medications Medications (Trade) Dose Ordered Sig/Pham Route PRN Reason Start Time Stop Time Status Last Admin Dose Admin Potassium Chloride/Water 100 ml @ 100 mls/hr Q1H IV 10/29/20 08:00 10/29/20 11:59 DC 10/29/20 17:01 Piperacillin Sod/ Tazobactam Sod 2.25 gm/Sodium Chloride 50 ml @ 100 mls/hr Q6HRS IV 10/29/20 12:00 10/30/20 05:36 Morphine Sulfate (Morphine Sulfate) 1 mg PRN Q10MIN PRN IVP SEVERE PAIN 7-10 10/29/20 10:45 10/30/20 10:44 10/29/20 16:54 Hydromorphone HCl (Dilaudid) 0.5 mg PRN Q10MIN PRN IVP SEVERE PAIN 7-10, 2nd CHOICE 10/29/20 10:45 10/30/20 10:44 10/29/20 17:13 Lorazepam (Ativan Inj) 2 mg PRN Q6HRS PRN IVP ANXIETY / AGITATION 10/29/20 11:45 10/29/20 12:42 Bupivacaine HCl/ Epinephrine Bitart (Sensorcain-Epi 0.5% Kit) 30 ml STK-MED ONCE .ROUTE 10/29/20 14:09 10/29/20 14:10 DC 10/29/20 15:22 Oxycodone/ Acetaminophen (Percocet 5/325) 2 tab PRN Q4HRS PRN PO SEVERE PAIN 10/29/20 16:15 3/2/21 02:23 Justifications for Admission Other Justification POP LÓPEZ MD Oct 30, 2020 07:41
[2020-10-30 08:05] LABS: CREATININE 1.2 mg/dL (0.6-1.0); GFR 47.6; POTASSIUM 3.4 mmol/L (3.5-5.1)
[2020-10-30] MEDS ORDERED: ALBUTEROL SULFATE 2.5 MG/3 ML NEBU. NEB PRN (08:30)
[2020-10-30] MEDS ORDERED: POTASSIUM CHLORIDE 20 MEQ TABLET.ER. PO ONE (09:00)
--- NOTE | 2020-10-30 09:44 | PDOC ---
DATE OF SERVICE DATE: 10/30/20 TIME: 09:44 SUBJECTIVE ROS Propped up in bed , No complaints, s/p surgery for Incarcerated hernia on 10/29` OBJECTIVE Vital Signs Vital Signs Date Time Temp Pulse Resp B/P (MAP) Pulse Ox O2 Delivery O2 Flow Rate FiO2 10/30/20 08:47 98 Room Air 10/30/20 07:00 97.6 86 18 136/79 (98) 97.6 10/29/20 16:24 8 I & 0 Intake and Output 10/30/20 07:00 Intake Total 4410 ml Output Total 560 ml Balance 3850 ml Intake Oral 2560 ml IV Total 1850 ml Output Urine Total 550 ml Estimated Blood Loss 10 ml # Voids 2 PHYSICAL EXAM Physical Exam General: Alert, Oriented X3,NAD HEENT: Atraumatic, PERRLA, OM moist Lungs: Clear to auscultation, Non labored CV : Regular rate Abdomen: Soft Extremities: No clubbing, No cyanosis, No edema Skin: No breakdown or rash Neuro: Normal speech, Cranial nerves 3-12 NL Psych/Mental Status: Mental status NL, Mood NL MUSCULOSKELETAL: No joint tenderness, No deformity, No swelling No shoemaker DIAGNOSIS/ASSESSMENT Assessment & Plan RADHA- Pre-renal , Improved with IV hydration from 5.6 to 1.2 , supportive care HypoNatremia POA- 2/2 Dehydration ,resolved HypoKalemia - K improved, mildly low, replace PO Severe Dehydration POA - resolved Incarcerated hernia-reported on CT- s/p Exploratory laparoscopy with reduction of incarcerated hernia, umbilical hernia repair with mesh on 10/29 COMMENT/RELEVANT DATA Meds Current Medications Medications (Trade) Dose Ordered Sig/Pham Start Time Stop Time Status Last Admin Dose Admin Acetaminophen (Tylenol) 650 mg PRN Q4HRS PRN 10/28/20 13:15 10/29/20 13:14 DC Albuterol Sulfate (Ventolin Neb Soln) 2.5 mg PRN Q6HRS PRN 10/30/20 08:30 10/30/20 08:47 2.5 MG Bupivacaine HCl/ Epinephrine Bitart (Sensorcain-Epi 0.5% Kit) 30 ml STK-MED ONCE 10/29/20 14:09 10/29/20 14:10 DC 10/29/20 15:22 10 ML Ceftriaxone Sodium (Rocephin) 1 gm 1X ONCE 10/28/20 08:30 10/28/20 08:31 DC 10/28/20 10:46 1 GM Dexamethasone Sodium Phosphate (Decadron) 4 mg STK-MED ONCE 10/29/20 15:49 10/29/20 15:49 DC Fentanyl Citrate (Fentanyl 2ml Vial) 100 mcg STK-MED ONCE 10/29/20 15:38 10/29/20 15:38 DC Glycopyrrolate (Robinul) 1 mg STK-MED ONCE 10/29/20 15:46 10/29/20 15:46 DC Hydromorphone HCl (Dilaudid) 2 mg STK-MED ONCE 10/29/20 17:00 10/29/20 17:00 DC Lidocaine HCl (Lidocaine Pf 2% Vial) 5 ml STK-MED ONCE 10/29/20 15:49 10/29/20 15:49 DC Lorazepam (Ativan Inj) 2 mg PRN Q6HRS PRN 10/29/20 11:45 10/29/20 12:42 2 MG Morphine Sulfate (Morphine Sulfate) 2 mg STK-MED ONCE 10/29/20 16:36 10/29/20 16:36 DC Neostigmine Methylsulfate (Bloxiverz) 10 mg STK-MED ONCE 10/29/20 15:38 10/29/20 15:38 DC Ondansetron HCl (Zofran) 4 mg STK-MED ONCE 10/29/20 15:49 10/29/20 15:49 DC Oxycodone/ Acetaminophen (Percocet 5/325) 2 tab PRN Q4HRS PRN 10/29/20 16:15 10/30/20 02:23 2 TAB Piperacillin Sod/ Tazobactam Sod (Zosyn Per Pharmacy) 1 each PRN DAILY PRN 10/28/20 13:30 Piperacillin Sod/ Tazobactam Sod 2.25 gm/Sodium Chloride 50 ml @ 100 mls/hr Q6HRS 10/29/20 12:00 10/30/20 05:36 100 MLS/HR Potassium Chloride/Water 100 ml @ 100 mls/hr Q1H 10/29/20 08:00 10/29/20 11:59 DC 10/29/20 17:01 100 MLS/HR Potassium Chloride (Klor-Con) 40 meq 1X ONCE 10/30/20 09:00 10/30/20 09:01 DC 10/30/20 08:43 40 MEQ Prochlorperazine Edisylate (Compazine) 5 mg PACU PRN PRN 10/29/20 10:45 10/30/20 10:44 Propofol (Diprivan) 200 mg STK-MED ONCE 10/29/20 15:49 10/29/20 15:49 DC Ringer's Solution 1,000 ml @ 30 mls/hr Q24H 10/29/20 10:45 10/29/20 22:44 DC Rocuronium [place] (Zemuron) 100 mg STK-MED ONCE 10/29/20 15:46 10/29/20 15:47 DC Sevoflurane (Ultane) 60 ml STK-MED ONCE 10/29/20 16:08 10/29/20 16:08 DC Sodium Chloride 1,000 ml @ 100 mls/hr Q10H 10/28/20 14:00 10/29/20 13:59 DC 10/29/20 06:24 100 MLS/HR Lab Laboratory Tests Test 10/30/20 07:35 Sodium Level 138 mmol/L (136-145) Potassium Level 3.4 mmol/L (3.5-5.1) Chloride Level 102 mmol/L (98-107) Carbon Dioxide Level 26 mmol/L (21-32) Anion Gap 10 (6-14) Blood Urea Nitrogen 25 mg/dL (7-20) Creatinine 1.2 mg/dL (0.6-1.0) Estimated GFR (Cockcroft-Gault) 47.6 Glucose Level 130 mg/dL (70-99) Calcium Level 8.0 mg/dL (8.5-10.1) Results All relevant outside records, renal labs, imaging studies, telemetry/EKG's were reviewed. Justicifation of Admission Dx: Justifications for Admission: Justification of Admission Dx: Yes Acute Renal Failure: 3-Fold Rise in Serum HUY Cristobal MD Oct 30, 2020 09:44
[2020-10-30 11:00] VITALS: BP 121/70
--- NOTE | 2020-10-30 11:35 | NUR ---
SS following up with discharge planning. SS reviewed pt chart and discussed with pt RN. Pt is currently on room air. COVID19 negative. Surgery saw today and Dr. Bahena requesting that pt stay one more night for observation. Discharge plan is to home when medically ready. SS will continue to follow for discharge planning.
[2020-10-30] MEDS: LACTOBACILLUS RHAMNOSUS GG 1 CAPSULE. PO SCH ×2 (12:58→20:53)
--- NOTE | 2020-10-30 13:23 | PDOC ---
PROGRESS NOTES Date of Service DATE: 10/30/20 TIME: 13:22 Subjective Subjective doing well, no problems Objective Objective Vital Signs Date Time Temp Pulse Resp B/P (MAP) Pulse Ox O2 Delivery O2 Flow Rate FiO2 10/30/20 11:35 18 100 Room Air 10/30/20 11:00 97.5 93 121/70 (87) 97.5 10/30/20 10:35 8.0 Intake and Output 10/30/20 07:00 Intake Total 4410 ml Output Total 560 ml Balance 3850 ml Intake Oral 2560 ml IV Total 1850 ml Output Urine Total 550 ml Estimated Blood Loss 10 ml # Voids 2 Physical Exam Abdomen: Soft, No tenderness Assessment Assessment Problems Medical Problems: (1) Renal failure Status: Acute (2) SBO (small bowel obstruction) Status: Acute (3) Sepsis Status: Acute (4) UTI (urinary tract infection) Status: Acute Plan Plan of Care Advance diet; probably home later today or in AM Comment Review of Relevant I have reviewed the following items jodi (where applicable) has been applied. Labs Laboratory Tests Test 10/28/20 13:45 10/28/20 14:09 10/29/20 01:50 10/29/20 06:20 Coronavirus (PCR) Not detected (Not Detected) SARS-CoV-2 Antigen (Rapid) Negative (NEGATIVE) Lactic Acid Level 1.5 mmol/L (0.4-2.0) Urine Collection Type Unknown Urine Color Yellow Urine Clarity Turbid Urine pH 5.5 (<5.0-8.0) Urine Specific [place] 1.020 (1.000-1.030) Urine Protein Negative mg/dL (NEG-TRACE) Urine Glucose (UA) Negative mg/dL (NEG) Urine Ketones (Stick) 15 mg/dL (NEG) Urine Blood Trace (NEG) Urine Nitrite Negative (NEG) Urine Bilirubin Negative (NEG) Urine Urobilinogen Dipstick 0.2 mg/dL (0.2 mg/dL) Urine Leukocyte Esterase Small (NEG) Urine RBC 1-2 /HPF (0-2) Urine WBC 5-10 /HPF (0-4) Urine Squamous Epithelial Cells Mod /LPF Urine Amorphous Sediment Present /HPF Urine Bacteria 0 /HPF (0-FEW) Sodium Level 134 mmol/L (136-145) Potassium Level 2.7 mmol/L (3.5-5.1) Chloride Level 96 mmol/L (98-107) Carbon Dioxide Level 27 mmol/L (21-32) Anion Gap 11 (6-14) Blood Urea Nitrogen 49 mg/dL (7-20) Creatinine 1.9 mg/dL (0.6-1.0) Estimated GFR (Cockcroft-Gault) 28.0 Glucose Level 120 mg/dL (70-99) Calcium Level 8.1 mg/dL (8.5-10.1) Test 10/30/20 07:35 Sodium Level 138 mmol/L (136-145) Potassium Level 3.4 mmol/L (3.5-5.1) Chloride Level 102 mmol/L (98-107) Carbon Dioxide Level 26 mmol/L (21-32) Anion Gap 10 (6-14) Blood Urea Nitrogen 25 mg/dL (7-20) Creatinine 1.2 mg/dL (0.6-1.0) Estimated GFR (Cockcroft-Gault) 47.6 Glucose Level 130 mg/dL (70-99) Calcium Level 8.0 mg/dL (8.5-10.1) Laboratory Tests Test 10/30/20 07:35 Sodium Level 138 mmol/L (136-145) Potassium Level 3.4 mmol/L (3.5-5.1) Chloride Level 102 mmol/L (98-107) Carbon Dioxide Level 26 mmol/L (21-32) Anion Gap 10 (6-14) Blood Urea Nitrogen 25 mg/dL (7-20) Creatinine 1.2 mg/dL (0.6-1.0) Estimated GFR (Cockcroft-Gault) 47.6 Glucose Level 130 mg/dL (70-99) Calcium Level 8.0 mg/dL (8.5-10.1) Microbiology 10/28/20 Urine Culture - Final, Complete 10/28/20 Blood Culture - Preliminary, Resulted NO GROWTH AFTER 2 DAYS Medications Current Medications Sodium Chloride 1,000 ml @ 1,000 mls/hr Q1H IV Last administered on 10/28/20at 08:29; Start 10/28/20 at 07:15; Stop 10/28/20 at 08:14; Status DC Lorazepam (Ativan Inj) 1 mg 1X ONCE IVP Last administered on 10/28/20at 08:29; Start 10/28/20 at 07:15; Stop 10/28/20 at 07:25; Status DC Ceftriaxone Sodium (Rocephin) 1 gm 1X ONCE IVP Last administered on 10/28/20at 10:46; Start 10/28/20 at 08:30; Stop 10/28/20 at 08:31; Status DC Sodium Chloride 1,000 ml @ 1,000 mls/hr 1X ONCE IV Last administered on 10/28/20at 10:09; Start 10/28/20 at 08:30; Stop 10/28/20 at 09:29; Status DC Sodium Chloride 1,000 ml @ 1,000 mls/hr 1X ONCE IV Last administered on 10/28/20at 13:42; Start 10/28/20 at 09:30; Stop 10/28/20 at 10:29; Status DC Hydromorphone HCl (Dilaudid) 0.5 mg 1X ONCE IVP Last administered on 10/28/20at 10:45; Start 10/28/20 at 10:30; Stop 10/28/20 at 10:31; Status DC Ondansetron HCl (Zofran) 4 mg 1X ONCE IVP Last administered on 10/28/20at 10:44; Start 10/28/20 at 10:30; Stop 10/28/20 at 10:31; Status DC Sodium Chloride 1,000 ml @ 1,000 mls/hr 1X ONCE IV ; Start 10/28/20 at 13:00; Stop 10/28/20 at 15:05; Status DC Hydromorphone HCl (Dilaudid) 0.5 mg PRN Q15MIN PRN IV/SQ PAIN GREATER THAN 3/10 Last administered on 10/28/20at 16:06; Start 10/28/20 at 13:00; Stop 10/29/20 at 12:59; Status DC Ondansetron HCl (Zofran) 4 mg PRN Q8HRS PRN IV NAUSEA/VOMITING Last administered on 10/28/20at 22:27; Start 10/28/20 at 13:15; Stop 10/29/20 at 13:14; Status DC Morphine Sulfate (Morphine Sulfate) 4 mg PRN Q2HR PRN IV PAIN; Start 10/28/20 at 13:15; Stop 10/29/20 at 13:14; Status DC Sodium Chloride 1,000 ml @ 100 mls/hr Q10H IV Last administered on 10/29/20at 06:24; Start 10/28/20 at 14:00; Stop 10/29/20 at 13:59; Status DC Acetaminophen (Tylenol) 650 mg PRN Q4HRS PRN PO FEVER > 100.3'F; Start 10/28/20 at 13:15; Stop 10/29/20 at 13:14; Status DC Piperacillin Sod/ Tazobactam Sod (Zosyn Per Pharmacy) 1 each PRN DAILY PRN MC SEE COMMENTS; Start 10/28/20 at 13:30 Piperacillin Sod/ Tazobactam Sod 2.25 gm/Sodium Chloride 50 ml @ 100 mls/hr Q8HRS IV Last administered on 10/29/20at 06:25; Start 10/28/20 at 14:00; Stop 10/29/20 at 10:00; Status DC Potassium Chloride/Water 100 ml @ 100 mls/hr Q1H IV Last administered on 10/29/20at 17:01; Start 10/29/20 at 08:00; Stop 10/29/20 at 11:59; Status DC Piperacillin Sod/ Tazobactam Sod 2.25 gm/Sodium Chloride 50 ml @ 100 mls/hr Q6HRS IV Last administered on 10/30/20at 05:36; Start 10/29/20 at 12:00; Stop 10/30/20 at 11:11; Status DC Fentanyl Citrate (Fentanyl 2ml Vial) 25 mcg PRN Q5MIN PRN IVP MILD PAIN 1-3; Start 10/29/20 at 10:45; Stop 10/30/20 at 10:44; Status DC Fentanyl Citrate (Fentanyl 2ml Vial) 50 mcg PRN Q5MIN PRN IVP MODERATE PAIN 4- 6; Start 10/29/20 at 10:45; Stop 10/30/20 at 10:44; Status DC Morphine Sulfate (Morphine Sulfate) 1 mg PRN Q10MIN PRN IVP SEVERE PAIN 7-10 Last administered on 10/29/20at 16:54; Start 10/29/20 at 10:45; Stop 10/30/20 at 10:44; Status DC Ringer's Solution 1,000 ml @ 30 mls/hr Q24H IV ; Start 10/29/20 at 10:45; Stop 10/29/20 at 22:44; Status DC Hydromorphone HCl (Dilaudid) 0.5 mg PRN Q10MIN PRN IVP SEVERE PAIN 7-10, 2nd CHOICE Last administered on 10/29/20at 17:13; Start 10/29/20 at 10:45; Stop 10/30/20 at 10:44; Status DC Prochlorperazine Edisylate (Compazine) 5 mg PACU PRN PRN IVP NAUSEA, MRX1; Start 10/29/20 at 10:45; Stop 10/30/20 at 10:44; Status DC Lorazepam (Ativan Inj) 2 mg PRN Q6HRS PRN IVP ANXIETY / AGITATION Last administered on 10/29/20at 12:42; Start 10/29/20 at 11:45 Bupivacaine HCl/ Epinephrine Bitart (Sensorcain-Epi 0.5% Kit) 30 ml STK-MED ONCE .ROUTE Last administered on 10/29/20at 15:22; Start 10/29/20 at 14:09; Stop 10/29/20 at 14:10; Status DC Neostigmine Methylsulfate (Bloxiverz) 10 mg STK-MED ONCE .ROUTE ; Start 10/29/20 at 15:38; Stop 10/29/20 at 15:38; Status DC Fentanyl Citrate (Fentanyl 2ml Vial) 100 mcg STK-MED ONCE .ROUTE ; Start 10/29/20 at 15:38; Stop 10/29/20 at 15:38; Status DC Fentanyl Citrate (Fentanyl 2ml Vial) 100 mcg STK-MED ONCE .ROUTE ; Start 10/29/20 at 15:38; Stop 10/29/20 at 15:38; Status DC Glycopyrrolate (Robinul) 1 mg STK-MED ONCE .ROUTE ; Start 10/29/20 at 15:46; Stop 10/29/20 at 15:46; Status DC Rocuronium [place] (Zemuron) 100 mg STK-MED ONCE .ROUTE ; Start 10/29/20 at 15:46; Stop 10/29/20 at 15:47; Status DC Propofol (Diprivan) 200 mg STK-MED ONCE IV ; Start 10/29/20 at 15:49; Stop 10/29/20 at 15:49; Status DC Lidocaine HCl (Lidocaine Pf 2% Vial) 5 ml STK-MED ONCE .ROUTE ; Start 10/29/20 at 15:49; Stop 10/29/20 at 15:49; Status DC Ondansetron HCl (Zofran) 4 mg STK-MED ONCE .ROUTE ; Start 10/29/20 at 15:49; Stop 10/29/20 at 15:49; Status DC Dexamethasone Sodium Phosphate (Decadron) 4 mg STK-MED ONCE .ROUTE ; Start 10/29/20 at 15:49; Stop 10/29/20 at 15:49; Status DC Sevoflurane (Ultane) 60 ml STK-MED ONCE IH ; Start 10/29/20 at 15:49; Stop 10/29/20 at 15:49; Status DC Hydromorphone HCl (Dilaudid) 2 mg STK-MED ONCE .ROUTE ; Start 10/29/20 at 15:56; Stop 10/29/20 at 15:56; Status DC Oxycodone/ Acetaminophen (Percocet 5/325) 1 tab PRN Q4HRS PRN PO MODERATE PAIN Last administered on 10/30/20at 10:35; Start 10/29/20 at 16:15 Oxycodone/ Acetaminophen (Percocet 5/325) 2 tab PRN Q4HRS PRN PO SEVERE PAIN Last administered on 10/30/20at 02:23; Start 10/29/20 at 16:15 Sevoflurane (Ultane) 60 ml STK-MED ONCE IH ; Start 10/29/20 at 16:08; Stop 10/29/20 at 16:08; Status DC Morphine Sulfate (Morphine Sulfate) 2 mg STK-MED ONCE .ROUTE ; Start 10/29/20 at 16:36; Stop 10/29/20 at 16:36; Status DC Hydromorphone HCl (Dilaudid) 2 mg STK-MED ONCE .ROUTE ; Start 10/29/20 at 17:00; Stop 10/29/20 at 17:00; Status DC Albuterol Sulfate (Ventolin Neb Soln) 2.5 mg PRN Q6HRS PRN NEB SHORTNESS OF BREATH Last administered on 10/30/20at 08:47; Start 10/30/20 at 08:30 Potassium Chloride (Klor-Con) 40 meq 1X ONCE PO Last administered on 10/30/20at 08:43; Start 10/30/20 at 09:00; Stop 10/30/20 at 09:01; Status DC Lactobacillus Rhamnosus (Culturelle) 1 cap BID PO Last administered on 10/30/20at 12:58; Start 10/30/20 at 11:00 Active Scripts Active Cephalexin 500 Mg Capsule 1 Cap PO TID 7 Days Ondansetron Odt (Ondansetron) 4 Mg Tab.rapdis 1 Tab PO PRN Q6-8HRS PRN Vitals/I & O Vital Sign - Last 24 Hours 10/29/20 10/29/20 10/29/20 10/29/20 13:47 16:09 16:09 16:24 Temp 97.6 98.8 97.6 98.8 Pulse 101 90 90 Resp B/P (MAP) 150/78 140/79 139/69 Pulse Ox 98 100 100 O2 Delivery Room Air Mask Simple Mask Simple Mask O2 Flow Rate 8 8 8 10/29/20 10/29/20 10/29/20 10/29/20 16:39 16:54 17:02 17:09 Temp 97.6 97.6 Pulse 96 96 96 Resp 20 17 B/P (MAP) 143/77 137/76 135/87 Pulse Ox 99 98 97 98 O2 Delivery Room Air Room Air Room Air Room Air 10/29/20 10/29/20 10/29/20 10/29/20 17:24 17:24 17:35 17:43 Temp 98.7 98.7 Pulse 101 Resp 22 B/P (MAP) 141/79 (99) Pulse Ox 97 O2 Delivery Room Air Room Air Room Air Room Air 10/29/20 10/29/20 10/29/20 10/30/20 19:40 20:00 23:15 03:50 Temp 97.8 97.9 97.8 97.8 97.9 97.8 Pulse 96 76 83 Resp 18 18 18 B/P (MAP) 138/70 (92) 125/72 (89) 127/70 (89) Pulse Ox 94 96 95 O2 Delivery Room Air Room Air Room Air Room Air 10/30/20 10/30/20 10/30/20 10/30/20 07:00 08:00 08:47 10:35 Temp 97.6 97.6 Pulse 86 Resp 18 18 B/P (MAP) 136/79 (98) Pulse Ox 97 98 98 O2 Delivery Room Air Room Air Room Air Room Air O2 Flow Rate 8.0 10/30/20 10/30/20 11:00 11:35 Temp 97.5 97.5 Pulse 93 Resp 18 18 B/P (MAP) 121/70 (87) Pulse Ox 100 100 O2 Delivery Room Air Room Air Intake and Output 10/29/20 10/29/20 10/30/20 15:00 23:00 07:00 Intake Total 650 ml 1860 ml 1900 ml Output Total 260 ml 300 ml Balance 650 ml 1600 ml 1600 ml Justifications for Admission Other Justification MOHINDER LALA MD Oct 30, 2020 13:23
--- NOTE | 2020-10-30 14:54 | NUR ---
Have reviewed and agree with manager of international documentation
[2020-10-30 15:00] VITALS: BP 127/73
[2020-10-30 19:50] VITALS: BP 132/66
[2020-10-30 23:45] VITALS: BP 132/68
[2020-10-31 03:45] VITALS: BP 128/70
[2020-10-31 07:00] VITALS: BP 116/67
[2020-10-31 07:30] LABS: CALCIUM 7.7 mg/dL (8.5-10.1); CREATININE 0.9 mg/dL (0.6-1.0); GFR 66.3; POTASSIUM 3.4 mmol/L (3.5-5.1)
--- NOTE | 2020-10-31 07:34 | PDOC ---
[employer] PROGRESS NOTE Date of Service DOS: DATE: 10/31/20 TIME: 07:30 Chief Complaint Chief Complaint Incarcerated hernia, urinary tract infection, severe renal failure, severe dehydration, erythrocytosis, hyponatremia, transaminitis. The patient has been admitted. Continue IV prophylactic antibiotics, IV fluids. Trend labs. Consult Nephrology. Consult General Surgery. Check her for coronavirus, p.r.n. Tylenol, p.r.n. morphine, n.p.o. Prognosis guarded. History of Present Illness History of Present Illness The patient is a pleasant 50-year-old female who is basically homeless. She states she is living in an abandoned house. They use the fireplace to create heat. She has got lot of scratch virk and possible insect bites on her lower extremities. These have been getting worse over the past couple of days. Surprisingly, she does not really have much abdominal pain, but we did some imaging and it is showing she does have an incarcerated hernia, small-bowel obstruction from incarcerated periumbilical bowel containing hernia was read out on her CT. I discussed the case with ER physician. We are going to admit the patient, give her IV antibiotics and consult General Surgery. She also has renal failure with a creatinine of 5.6 and a BUN of 67. We are going to give her some fluids and consult Nephrology. 10/29/2020: Afebrile, tachycardic. She admits to some nausea but denies any vomiting or significant abdominal pain. Will continue to provide IV hydration and keep patient NPO. Repeat CT abdomen pelvis pending. Charts and labs reviewed, hold off on surgical intervention until kidney function improves. Creatinine 1.9 this morning, potassium 2.7. Will replace. 10/30/2020 POD #1, s/p exporter laparoscopy with reduction of incarcerated hernia. No acute events overnight. Tolerating clear liquid diet. Abdominal pain tolerable with medication. Morning labs pending. Encouraged participation with PT/OT. General surgery reportedly wanting patient to stay 1 more day for further observation. 10/31/2020 POD #2, s/p exploratory laparoscopy with reduction of incarcerated hernia. Afebrile, no acute overnight. Tolerating regular diet. Kidney function continues to improve, creatinine 1.2 yesterday, morning labs pending. PT recommending home with assistance and rolling walker. Greater than 30 minutes spent managing the discharge of this patient. Vitals/I&O Vitals/I&O: Vital Signs Date Time Temp Pulse Resp B/P (MAP) Pulse Ox O2 Delivery O2 Flow Rate FiO2 10/31/20 03:45 97.9 82 20 128/70 (89) 98 Room Air 97.9 10/30/20 16:44 8.0 I & O 10/30/20 10/30/20 10/31/20 15:00 23:00 07:00 Intake Total 237 ml 640 ml 480 ml Output Total 400 ml Balance 237 ml 640 ml 80 ml Physical Exam General: Alert, Oriented X3 Heart: Regular rate Lungs: Clear Abdomen: Soft, No tenderness Extremities: No clubbing, No cyanosis Skin: No breakdown Labs Labs: Laboratory Tests Test 10/30/20 07:35 Sodium Level 138 mmol/L (136-145) Potassium Level 3.4 mmol/L (3.5-5.1) Chloride Level 102 mmol/L (98-107) Carbon Dioxide Level 26 mmol/L (21-32) Anion Gap 10 (6-14) Blood Urea Nitrogen 25 mg/dL (7-20) Creatinine 1.2 mg/dL (0.6-1.0) Estimated GFR (Cockcroft-Gault) 47.6 Glucose Level 130 mg/dL (70-99) Calcium Level 8.0 mg/dL (8.5-10.1) Assessment and Plan Assessmemt and Plan Problems Medical Problems: (1) Renal failure Status: Acute (2) SBO (small bowel obstruction) Status: Acute (3) Sepsis Status: Acute (4) UTI (urinary tract infection) Status: Acute Comment Review of Relevant I have reviewed the following items jodi (where applicable) has been applied. Medications: Current Medications Medications (Trade) Dose Ordered Sig/Pham Route PRN Reason Start Time Stop Time Status Last Admin Dose Admin Albuterol Sulfate (Ventolin Neb Soln) 2.5 mg PRN Q6HRS PRN NEB SHORTNESS OF BREATH 10/30/20 08:30 10/30/20 08:47 Potassium Chloride (Klor-Con) 40 meq 1X ONCE PO 10/30/20 09:00 10/30/20 09:01 DC 10/30/20 08:43 Lactobacillus Rhamnosus (Culturelle) 1 cap BID PO 10/30/20 11:00 10/30/20 20:53 Justifications for Admission Other Justification POP LÓPEZ MD Oct 31, 2020 07:34
[2020-10-31] MEDS ORDERED: POTASSIUM CHLORIDE 20 MEQ TABLET.ER. PO ONE (08:15)
[2020-10-31] MEDS: LACTOBACILLUS RHAMNOSUS GG 1 CAPSULE. PO SCH (08:57)
--- NOTE | 2020-10-31 10:08 | PDOC ---
DATE OF SERVICE DATE: 10/31/20 TIME: 10:07 SUBJECTIVE ROS No complaints OBJECTIVE Vital Signs Vital Signs Date Time Temp Pulse Resp B/P (MAP) Pulse Ox O2 Delivery O2 Flow Rate FiO2 10/31/20 07:00 97.9 75 20 116/67 (83) 100 Room Air 97.9 10/30/20 16:44 8.0 I & 0 Intake and Output 10/31/20 07:00 Intake Total 1357 ml Output Total 400 ml Balance 957 ml Intake Oral 1357 ml Output Urine Total 400 ml # Voids 2 PHYSICAL EXAM Physical Exam General: Alert, Oriented X3,NAD HEENT: Atraumatic, PERRLA, OM moist Lungs: Clear to auscultation, Non labored CV : Regular rate Abdomen: Soft Extremities: No clubbing, No cyanosis, No edema Skin: No breakdown or rash Neuro: Normal speech, Cranial nerves 3-12 NL Psych/Mental Status: Mental status NL, Mood NL MUSCULOSKELETAL: No joint tenderness, No deformity, No swelling No shoemaker DIAGNOSIS/ASSESSMENT Assessment & Plan RADHA- Pre-renal , resolved .Avoid NSAIds and Nephrotoxins HypoNatremia POA- 2/2 Dehydration , resolved HypoKalemia - mildly low, replace PO Severe Dehydration POA - resolved Incarcerated hernia-reported on CT- s/p Exploratory laparoscopy with reduction of incarcerated hernia, umbilical hernia repair with mesh on 10/29 COMMENT/RELEVANT DATA Meds Current Medications Medications (Trade) Dose Ordered Sig/Pham Start Time Stop Time Status Last Admin Dose Admin Acetaminophen (Tylenol) 650 mg PRN Q4HRS PRN 10/28/20 13:15 10/29/20 13:14 DC Albuterol Sulfate (Ventolin Neb Soln) 2.5 mg PRN Q6HRS PRN 10/30/20 08:30 10/30/20 08:47 2.5 MG Bupivacaine HCl/ Epinephrine Bitart (Sensorcain-Epi 0.5% Kit) 30 ml STK-MED ONCE 10/29/20 14:09 10/29/20 14:10 DC 10/29/20 15:22 10 ML Ceftriaxone Sodium (Rocephin) 1 gm 1X ONCE 10/28/20 08:30 10/28/20 08:31 DC 10/28/20 10:46 1 GM Dexamethasone Sodium Phosphate (Decadron) 4 mg STK-MED ONCE 10/29/20 15:49 10/29/20 15:49 DC Fentanyl Citrate (Fentanyl 2ml Vial) 100 mcg STK-MED ONCE 10/29/20 15:38 10/29/20 15:38 DC Glycopyrrolate (Robinul) 1 mg STK-MED ONCE 10/29/20 15:46 10/29/20 15:46 DC Hydromorphone HCl (Dilaudid) 2 mg STK-MED ONCE 10/29/20 17:00 10/29/20 17:00 DC Lactobacillus Rhamnosus (Culturelle) 1 cap BID 10/30/20 11:00 10/31/20 08:57 1 CAP Lidocaine HCl (Lidocaine Pf 2% Vial) 5 ml STK-MED ONCE 10/29/20 15:49 10/29/20 15:49 DC Lorazepam (Ativan Inj) 2 mg PRN Q6HRS PRN 10/29/20 11:45 10/29/20 12:42 2 MG Morphine Sulfate (Morphine Sulfate) 2 mg STK-MED ONCE 10/29/20 16:36 10/29/20 16:36 DC Neostigmine Methylsulfate (Bloxiverz) 10 mg STK-MED ONCE 10/29/20 15:38 10/29/20 15:38 DC Ondansetron HCl (Zofran) 4 mg STK-MED ONCE 10/29/20 15:49 10/29/20 15:49 DC Oxycodone/ Acetaminophen (Percocet 5/325) 2 tab PRN Q4HRS PRN 10/29/20 16:15 10/30/20 02:23 2 TAB Piperacillin Sod/ Tazobactam Sod (Zosyn Per Pharmacy) 1 each PRN DAILY PRN 10/28/20 13:30 10/30/20 13:54 DC Piperacillin Sod/ Tazobactam Sod 2.25 gm/Sodium Chloride 50 ml @ 100 mls/hr Q6HRS 10/29/20 12:00 10/30/20 11:11 DC 10/30/20 05:36 100 MLS/HR Potassium Chloride/Water 100 ml @ 100 mls/hr Q1H 10/29/20 08:00 10/29/20 11:59 DC 10/29/20 17:01 100 MLS/HR Potassium Chloride (Klor-Con) 40 meq 1X ONCE 10/31/20 08:15 10/31/20 08:16 DC 10/31/20 08:58 40 MEQ Prochlorperazine Edisylate (Compazine) 5 mg PACU PRN PRN 10/29/20 10:45 10/30/20 10:44 DC Propofol (Diprivan) 200 mg STK-MED ONCE 10/29/20 15:49 10/29/20 15:49 DC Ringer's Solution 1,000 ml @ 30 mls/hr Q24H 10/29/20 10:45 10/29/20 22:44 DC Rocuronium [place] (Zemuron) 100 mg STK-MED ONCE 10/29/20 15:46 10/29/20 15:47 DC Sevoflurane (Ultane) 60 ml STK-MED ONCE 10/29/20 16:08 10/29/20 16:08 DC Sodium Chloride 1,000 ml @ 100 mls/hr Q10H 10/28/20 14:00 10/29/20 13:59 DC 10/29/20 06:24 100 MLS/HR Lab Laboratory Tests Test 10/31/20 05:45 Sodium Level 138 mmol/L (136-145) Potassium Level 3.4 mmol/L (3.5-5.1) Chloride Level 103 mmol/L (98-107) Carbon Dioxide Level 26 mmol/L (21-32) Anion Gap 9 (6-14) Blood Urea Nitrogen 12 mg/dL (7-20) Creatinine 0.9 mg/dL (0.6-1.0) Estimated GFR (Cockcroft-Gault) 66.3 Glucose Level 121 mg/dL (70-99) Calcium Level 7.7 mg/dL (8.5-10.1) Results All relevant outside records, renal labs, imaging studies, telemetry/EKG's were reviewed. Justicifation of Admission Dx: Justifications for Admission: Justification of Admission Dx: Yes Acute Renal Failure: 3-Fold Rise in Serum Crea HUY MULLINS MD Oct 31, 2020 10:08
--- NOTE | 2020-10-31 10:25 | PDOC3 ---
Discharge Summary Visit Information Date of Admission: Oct 28, 2020 Date of Discharge: Oct 31, 2020 Final Diagnosis Problems Medical Problems: (1) Renal failure Status: Acute (2) SBO (small bowel obstruction) Status: Acute (3) Sepsis Status: Acute (4) UTI (urinary tract infection) Status: Acute Brief Hospital Course Allergies Allergies Coded Allergies Type Severity Reaction Last Updated Verified No Known Drug Allergies 01/03/16 No Vital Signs Vital Signs Date Time Temp Pulse Resp B/P (MAP) Pulse Ox O2 Delivery O2 Flow Rate FiO2 10/31/20 07:00 97.9 75 20 116/67 (83) 100 Room Air 97.9 10/30/20 16:44 8.0 Lab Results Laboratory Tests Test 10/30/20 07:35 10/31/20 05:45 Sodium Level 138 mmol/L (136-145) 138 mmol/L (136-145) Potassium Level 3.4 mmol/L (3.5-5.1) 3.4 mmol/L (3.5-5.1) Chloride Level 102 mmol/L (98-107) 103 mmol/L (98-107) Carbon Dioxide Level 26 mmol/L (21-32) 26 mmol/L (21-32) Anion Gap 10 (6-14) 9 (6-14) Blood Urea Nitrogen 25 mg/dL (7-20) 12 mg/dL (7-20) Creatinine 1.2 mg/dL (0.6-1.0) 0.9 mg/dL (0.6-1.0) Estimated GFR (Cockcroft-Gault) 47.6 66.3 Glucose Level 130 mg/dL (70-99) 121 mg/dL (70-99) Calcium Level 8.0 mg/dL (8.5-10.1) 7.7 mg/dL (8.5-10.1) Laboratory Tests Test 10/31/20 05:45 Sodium Level 138 mmol/L (136-145) Potassium Level 3.4 mmol/L (3.5-5.1) Chloride Level 103 mmol/L (98-107) Carbon Dioxide Level 26 mmol/L (21-32) Anion Gap 9 (6-14) Blood Urea Nitrogen 12 mg/dL (7-20) Creatinine 0.9 mg/dL (0.6-1.0) Estimated GFR (Cockcroft-Gault) 66.3 Glucose Level 121 mg/dL (70-99) Calcium Level 7.7 mg/dL (8.5-10.1) Brief Hospital Course Ms. Johnson is a 50 old female who presented with incarcerated local hernia, RADHA. Consultations also general surgery and nephrology. She had exploratory laparotomy with reduction of incarcerated hernia and umbilical hernia repair with mesh. She was also treated with IV fluids for her vasomotor nephropathy with improvement. She was stable for discharge home independently with close PCP follow-up. Discharge Information Condition at Discharge: Improved Follow Up: Weeks Disposition/Orders: D/C to Home Scheduled Cephalexin (Cephalexin) 500 Mg Capsule, 1 CAP PO TID for 7 Days, #21 Prescribed by: ELVIS SALDANA D.O. on 10/26/20 0804 Scheduled PRN Ondansetron (Ondansetron Odt) 4 Mg Tab.rapdis, 1 TAB PO PRN Q6-8HRS PRN for NAUSEA, #16 Prescribed by: ELVIS SALDANA D.O. on 10/26/20 0704 Justicifation of Admission Dx: Justifications for Admission: Justification of Admission Dx: Yes Acute Renal Failure: 3-Fold Rise in Serum Crea POP LÓPEZ MD Oct 31, 2020 10:25
[2020-10-31 11:00] VITALS: BP 130/69
--- NOTE | 2020-10-31 11:12 | NUR ---
SS following up with discharge planning. SS reviewed pt chart and discussed with pt RN. Pt is currently on room air. COVID19 negative. PT/OT recommended home. Discharge order on the chart for home with self care.
[2020-10-31] MEDS ORDERED: ASA/APAP/CAFFEINE 250/250/65MG TABLET. PO PRN (12:00)
--- NOTE | 2020-10-31 13:23 | NUR ---
Discharge Note: KRYSTYNA WASSERMAN [address] Discharge instructions and discharge home medications reviewed with Patient and a copy given. All questions have been answered and understanding verbalized. The following instructions and handouts were given: S/p hernia repair, cardiac, and RADHA. Discontinued iv line and drains catheter intact. Patient discharged to home with self-care.
== END 2020-10-31 13:28 | disposition home or self-care (01) | DRG 853 ==
LOC: ER 06:26 → 2 SOUTH 13:00
PROVIDERS: ADMIT Internal Medicine; ATTEND Internal Medicine
PROC: 0WJG4ZZ Inspection of Peritoneal Cavity, Percutaneous Endoscopic Approach (ICD-10-PCS; principal; 2020-10-29 14:15)
PROC: 0WUF0JZ Supplement Abdominal Wall with Synthetic Substitute, Open Approach (ICD-10-PCS; 2020-10-29 14:15)
DX: A41.9 Sepsis, unspecified organism (principal); N17.0 Acute kidney failure with tubular necrosis; N39.0 Urinary tract infection, site not specified; E87.1 Hypo-osmolality and hyponatremia; K42.0 Umbilical hernia with obstruction, without gangrene; Z68.42 Body mass index [BMI] 45.0-49.9, adult; E86.0 Dehydration; D75.1 Secondary polycythemia; J45.909 Unspecified asthma, uncomplicated; Z98.891 History of uterine scar from previous surgery; Z59.0 Homelessness; Z82.49 Family history of ischemic heart disease and other diseases of the circulatory system; Z91.19 Patient's noncompliance with other medical treatment and regimen; E66.9 Obesity, unspecified; R74.01 Elevation of levels of liver transaminase levels; Z20.822 Contact with and (suspected) exposure to COVID-19; E87.6 Hypokalemia; Z90.49 Acquired absence of other specified parts of digestive tract; M41.9 Scoliosis, unspecified
CPT/HCPCS: 36415; 74176; 80048; 80076; 80307; 81001; 82550; 83605; 83690; 83735; 84484; 85025; 87040; 87086; 87426; 93005; 94640; 94760; 96361; 96374; 96375; 96376; A4314; A4364; A4452; A6219; C1781; J0696; J1100; J1170; J2060; J2270; J2405; J2543; J2704; J2710; J3010; J3480; J3490; J7030; U0003; 97110-GP; 97116-GP; 97530-GP; 97535-GO; 99285-25; G0378; J7613